=== PATIENT | female | born 1950 | race Caucasian/White ===

== ENCOUNTER → 2017-01-25 | Outpatient (CLI) | payer OTHER | LOC: FIMAGING 10:23 | PROVIDERS: ATTEND Family Medicine | DX: Z12.31 Encounter for screening mammogram for malignant neoplasm of breast (principal) | CPT/HCPCS: G0202 ==

== ENCOUNTER 2017-11-09 05:42 | Inpatient (IN) | payer OTHER ==
[2017-11-09] MEDS ORDERED: cefOXitin SODIUM 2 GM in STERILE WATER INJ 21 ML IV ONE (06:00)
[2017-11-09] MEDS ORDERED: LR 1,000 ML IV ONE (06:07)
[2017-11-09] MEDS ORDERED: ceFAZolin 1 GM/5 ML SYR ONE (06:40)
[2017-11-09] MEDS ORDERED: BUPIVACAINE 0.5% 10 ML SDV ONE (06:41)
[2017-11-09] MEDS ORDERED: HEPARIN 1000 UNIT/1 ML MDV ONE (06:41)
--- NOTE | 2017-11-09 06:52 | PDANEPAE ---
ANE History of Present Illness Laparoscopic rectopexy ANE Past Medical History - Cardiovascular History Hx Hypertension: Yes Hx Arrhythmias: No Hx Chest Pain: No Hx Coronary Artery / Peripheral Vascular Disease: Yes Hx CHF / Valvular Disease: No Hx Palpitations: No Cardiovascular History Comment: known CAD - Pulmonary History Hx COPD: Yes Hx Asthma/Reactive Airway Disease: Yes Hx Recent Upper Respiratory Infection: Yes Hx Oxygen in Use at Home: Yes O2 in Use at Home (L/minute): 2L at noc Hx Sleep Apnea: No Sleep Apnea Screening Result - Last Documented: Positive Pulmonary History Comment: restrictive lung disease. hypoxemia - Neurologic History Hx Cerebrovascular Accident: Yes Hx Seizures: No Hx Dementia: No Neurologic History Comment: stroke 01/04 expressive aphasia, right side weakness - Endocrine History Hx Diabetes: No - Renal History Hx Renal Disorders: No - Liver History Hx Hepatic Disorders: No - Cancer History Hx Cancer: No - Congenital Disorder History Hx Congenital Disorders: No - GI History Hx Gastrointestinal Disorders: Yes Gastrointestinal History Comment: reflux - Other Health History Other Health History: macular degeneration. upper and lower dentures. right sided weakness. bruises easily. pt cannot distinguish between hot and cold with right side - Chronic Pain History Chronic Pain: Yes (head hurts all the time) - Surgical History Prior Surgeries: colonoscopy ANE Review of Systems Review of systems is: negative Review of Systems: - Exercise capacity METS (RN): 2 METS ANE Patient History - Allergies Allergies/Adverse Reactions: No Known Allergies Allergy (Verified 11/07/17 11:05) - Home Medications Home medications: home medication list seen and reviewed Home Medications: Albuterol Sulfate 07/16/11 [Last Taken 10/10/17] Daily Multiple Tablet 07/16/11 [Last Taken 11/07/17] Fish Oil 1,000 mg EC Softgel 07/16/11 [Last Taken 11/07/17] Neurontin 07/16/11 [Last Taken 11/08/17] Occuvite 07/16/11 [Last Taken 11/07/17] Refresh 07/16/11 [Last Taken 11/08/17] Tylenol Tab 325mg 07/16/11 [Last Taken Unknown] Wellbutrin Sr 07/16/11 [Last Taken 11/08/17] Zocor 07/16/11 [Last Taken 11/09/17] ZyRTEC 07/16/11 [Last Taken 11/07/17] Aspirin 81mg (*) 11/07/17 [Last Taken 11/08/17] Cozaar 11/07/17 [Last Taken 11/09/17] Herbals/Supplements -Info Only 11/07/17 [Last Taken 11/07/17] Levothyroxine 11/07/17 [Last Taken 11/09/17] Vitamin D3 (*) 11/07/17 [Last Taken 11/07/17] - NPO status NPO Since - Liquids (Date): 11/09/17 NPO Since - Liquids (Time): 04:30 NPO Since - Solids (Date): 11/08/17 NPO Since - Solids (Time): 19:00 - Anes Hx Anes Hx: no prior problems - Smoking Hx Smoking Status: Former smoker - Family Anes Hx Family Anes Hx: none Family Hx Anesthesia Complications: none ANE Labs/Vital Signs - Labs Result Diagrams: 11/09/17 06:42 - Vital Signs Blood Pressure: 117/65 Heart Rate: 62 Respiratory Rate: 18 O2 Sat (%): 88 Height: 149.86 cm Weight: 104.326 kg ANE Physical Exam - Airway Neck exam: FROM Mallampati Score: Class 3 Mouth exam: dentures - Pulmonary Pulmonary: no respiratory distress - Cardiovascular Cardiovascular: regular rate and rhythym - ASA Status ASA Status: III ANE Anesthesia Plan Anesthesia Plan: general endotracheal anesthesia
[2017-11-09 06:57] LABS: PLATELET COUNT 241 10^3/uL (150-400)
--- NOTE | 2017-11-09 07:03 | PDHPUP ---
History & Physical Update H&P update statement: This history and physical update is based on an assessment of the patient which was completed after admission or registration (within 24 hours), but prior to the surgery/procedure. H&P update: H&P reviewed & patient examined, no change in patient's condition since H&P completed
[2017-11-09] MEDS ORDERED: fentaNYL 250 MCG/5 ML INJ ONE (07:22)
[2017-11-09] MEDS ORDERED: ROCURONIUM 50 MG/5 ML VIAL ONE ×2 (07:22→08:23)
[2017-11-09] MEDS ORDERED: SUGAMMADEX SODIUM 200 MG/2 ML VIAL IVP ONE (07:22)
[2017-11-09] MEDS ORDERED: ONDANSETRON 4 MG/2 ML VIAL ONE (07:22)
[2017-11-09] MEDS ORDERED: LIDOCAINE 2% 100 MG/5 ML SYR ONE (07:22)
[2017-11-09] MEDS ORDERED: DEXAMETHASONE 4 MG/ML VIAL ONE (07:22)
[2017-11-09] MEDS ORDERED: PROPOFOL 200 MG/20 ML VIAL ONE (07:23)
[2017-11-09] MEDS ORDERED: PHENYLEPHRINE HCL 100 MCG/ML SYR ONE (07:45)
[2017-11-09] MEDS ORDERED: HYDROCODONE/APAP 5/325 TAB PO PRN (08:45)
[2017-11-09] MEDS ORDERED: fentaNYL 100 MCG/2 ML INJ IVP PRN (08:45)
[2017-11-09] MEDS ORDERED: ONDANSETRON 4 MG/2 ML VIAL IVP PRN ×2 (08:45→10:16)
[2017-11-09] MEDS ORDERED: PROMETHAZINE HCL 25 MG/ML INJ IVP PRN (08:45)
[2017-11-09] MEDS ORDERED: DEXAMETHASONE 4 MG/ML VIAL IVP PRN (08:45)
[2017-11-09] MEDS ORDERED: MEPERIDINE 25 MG/ML SYR IVP PRN (08:45)
[2017-11-09] MEDS ORDERED: NALOXONE HCL 0.4 MG/ML INJ IVP PRN (08:45)
[2017-11-09] MEDS ORDERED: ALBUTEROL 3 ML DEYVIAL IH PRN (08:45)
[2017-11-09] MEDS ORDERED: HYDROmorphONE/DILAUDID 2 MG/ML INJ IVP PRN (08:45)
[2017-11-09] MEDS ORDERED: LABETALOL HCL 5 MG/ML 20 ML MDV IVP PRN (08:45)
[2017-11-09] MEDS ORDERED: OXYCODONE/APAP 5/325 TAB PO PRN (08:45)
[2017-11-09] MEDS ORDERED: ACETAMINOPHEN 500 MG TAB PO PRN (08:45)
--- NOTE | 2017-11-09 08:47 | POSTANESTH ---
Post Anesthetic Evaluation Cardiovascular Status: Similar to Pre-Op Cond Respiratory Status: Similar to Pre-op Cond. Level of Consciousness/Mental Status: Can Participate in Eval, Moderately Sleepy Pain Control: Adequate, Prn Tx Ordered Nausea/Vomiting Control: Adequate, Prn Tx Ordered Complications Possibly Related to Anesthesia: None Noted
[2017-11-09] MEDS ORDERED: ACETAMINOPHEN 325 MG TAB PO PRN (10:16)
[2017-11-09] MEDS ORDERED: ONDANSETRON DISINTEGRATING 4 MG TAB PO PRN (10:16)
--- NOTE | 2017-11-09 10:16 | POSTOPPROG ---
Post Op Note Date of Operation: 11/09/17 Surgeon: Boyd Galvan Freight Flagman: Luis F Anesthesiologist: Clementine Anesthesia: GET(General Endotracheal) Pre-op Diagnosis: Rectal prolapse Post-op Diagnosis: same Indication: same Procedure: laparoscopic rectopexy Findings: multiple diverticuli Inf/Abcess present in the surg proc area at time of surgery?: No EBL: Minimal
[2017-11-09] MEDS ORDERED: PROMETHAZINE HCL 25 MG/ML INJ ONE (11:03)
[2017-11-09] MEDS: NS 1,000 ML IV SCH ×2 (11:45→21:55)
[2017-11-09] MEDS: HYDROmorphONE/DILAUDID 2 MG/ML INJ IVP PRN ×2 (13:28→18:01)
[2017-11-09] MEDS: OXYCODONE/APAP 5/325 TAB PO PRN ×2 (15:32→20:44)
--- NOTE | 2017-11-09 16:26 | PDMN ---
Medical Necessity Medical necessity: Pt meets INPT criteria per MD and [facility] General Surgery or Procedure ( INPT Only surgery; cpt 90334; lap rectopexy).
[2017-11-10] MEDS: OXYCODONE/APAP 5/325 TAB PO PRN ×5 (00:45→21:20)
[2017-11-10] MEDS: ENOXAPARIN 40 MG/0.4 ML SYR SC SCH (10:25)
[2017-11-10] MEDS: LOSARTAN POTASSIUM 25 MG TAB PO SCH (11:28)
[2017-11-10] MEDS: GABAPENTIN 100 MG CAP PO SCH ×3 (11:28→21:19)
[2017-11-10] MEDS ORDERED: ALBUTEROL 60 PUFFS/8 GM MDI IH PRN (12:21)
[2017-11-10] MEDS ORDERED: CARBOXYMETHYLCELLULOSE 1% 0.4 ML DROPERETTE EACHEYE PRN (12:21)
[2017-11-10] MEDS ORDERED: BISACODYL 10 MG SUPP PR PRN (13:52)
[2017-11-10] MEDS ORDERED: MAGNESIUM HYDROXIDE 30 ML UDCUP PO PRN (13:52)
[2017-11-10] MEDS ORDERED: LACTULOSE 20 GM/30 ML UDCUP PO PRN (13:52)
[2017-11-10] MEDS ORDERED: POLYETHYLENE GLYCOL 3350 17 GM PKT PO PRN (13:52)
--- NOTE | 2017-11-10 13:52 | SOAPPROG ---
SOAP Progress Note Assessment/Plan: Assessment: s/p rectopexy doing well but weak May need rehab DC soon Regular diet Home medications S: Pain controlled. Worked with PT today. Passing flatus O: Lying flat in bed, appears well CTAB RRR BS present, soft and minimally tender Plan: 11/10/17 13:51 Objective: Vital Signs Temp Pulse Resp BP Pulse Ox 37.2 C 90 16 99/69 L 93 11/10/17 11:59 11/10/17 11:59 11/10/17 11:59 11/10/17 11:59 11/10/17 11:59 Laboratory Results 11/09/17 06:42 11/09/17 11/10/17 11/11/17 05:59 05:59 05:59 Intake Total 3984 Output Total 850 550 Balance 3134 -550 ICD10 Worksheet Patient Problems: Problems Problem Status Onset Rectal prolapse Acute - ICD10 Problem Qualifiers (1) Rectal prolapse
--- NOTE | 2017-11-10 14:35 | GOP ---
[f rep st] OPERATIVE REPORT DATE OF OPERATION: 11/09/2017 SURGEON: Boyd Galvan MD VULNERABILITY ASSESSMENT ANALYST: Akilah Spring NP. ANESTHESIA: Dr. Fahad Kerns. PREOPERATIVE DIAGNOSIS: Rectal prolapse. POSTOPERATIVE DIAGNOSIS: Rectal prolapse. PROCEDURE PERFORMED: Rectopexy, laparoscopic. FINDINGS: Patient was found to have full 360 degree rectal prolapse. She had a significant amount o f redundant colon with significant diverticular disease. ESTIMATED BLOOD LOSS: Less than 50 cc. DESCRIPTION OF PROCEDURE: Patient was taken to the operating room where she received satisfactory ge neral endotracheal anesthesia by Dr. Kerns. She was placed in a supine position, prepped and drap ed in the usual sterile fashion. A supraumbilical incision was made. A Veress needle inserted. Pne umoperitoneum was established. Trocar was introduced. Visualization was adequate, although there wa s a significant amount of intraabdominal adhesions. A separate trocar was placed in the left lower q uadrant as well as the right lower quadrant, and adhesions were taken down until the small bowel coul d be retracted back into the upper abdomen. The sigmoid colon was then mobilized by taking down adhe sions to the left lateral wall. The colon was elevated up. The peritoneum on either side of the col on was incised, and dissection extended down to the presacral space as well as exposing the sacral pr ominence. After adequate exposure was achieved, a piece of polypropylene mesh was placed over the sa mayur and secured in place with ProTack tacks. The piece was designed with the veins going on either side of the colon. Multiple 2-0 silk sutures were then placed in the distal sigmoid colon wall and s utured to the presacral fascia and/or to the mesh wings. This was done on either side of the colon, securing the sigmoid colon up to the sacral prominence. Hemostasis was assured. The wound was irrig ated. The peritoneum was closed with a running V-Loc suture. Hemostasis was assured. Trocars were removed under direct vision, and the trocar sites were closed with 0 Vicryl for the fascia, 4-0 Monoc ryl subcuticular stitch for the skin. All layers were infiltrated with Marcaine. She caesar erated the procedure well. COMPLICATIONS: There were no complications. /[id number]/MODL
--- NOTE | 2017-11-10 14:59 | ASMTCMCOM ---
CM Note CM Note Notes: Pt. is a 67-year-old disabled woman admitted for surgery due to a rectal prolapse. Pt. w/ hx. CVA in 2010, forgetful, expressive aphasia, anxiety and depression. At baseline, Pt. lives with her Willem who is her caregiver. Today SWer consulted with beside RN about Pt's situation. Per RN, inclined to take Pt. home and care for her as he as been since Pt's CVA in 2010. However, later in the day jodi Julian expressed that she would like Pt. to go to SNF for one or two weeks since she is currently a two person assist and her father cannot handle the increased needs in dtr's opinion. SWer asked Iesha to discuss this with her father while [facility] made SNF referrals to get the ball rolling. Pt. has [employer] Medicare. Iesha stated she would do that. At daughter's request, SWer made referrals to [facility], [facility], and [facility]. [place] SNFs are preferred. In addition, since Pt. has expressive aphasia, SWer could not sit with Pt. for PASRR interview (hx. of depression and anxiety after stroke). Daughter states that she would characterize Pt's current anxiety and depression as "mild". SWer did not trigger PASRR. PASRR in Allscripts. CM to follow for d/c POC. Date Signed: 11/10/2017 02:58 PM Electronically Signed By:Iwona Santamaria LCSW
[2017-11-10] MEDS ORDERED: NON-FORMULARY NEW DRUG (Simvastatin [Zocor] 5 MG) PO SCH (21:00)
[2017-11-10] MEDS: PRAVASTATIN SODIUM 10 MG TAB PO SCH (21:20)
[2017-11-10] MEDS: DOCUSATE SODIUM 100 MG CAP PO SCH (21:20)
[2017-11-11] MEDS: OXYCODONE/APAP 5/325 TAB PO PRN ×4 (04:36→19:59)
[2017-11-11] MEDS: LEVOTHYROXINE 50 MCG TAB PO SCH (04:38)
[2017-11-11] MEDS: GABAPENTIN 100 MG CAP PO SCH ×3 (09:07→18:17)
[2017-11-11] MEDS: ASPIRIN 81 MG CHEWABLE TAB PO SCH (09:07)
[2017-11-11] MEDS: DOCUSATE SODIUM 100 MG CAP PO SCH ×2 (09:08→19:58)
[2017-11-11] MEDS: LOSARTAN POTASSIUM 25 MG TAB PO SCH (09:08)
[2017-11-11] MEDS: ENOXAPARIN 40 MG/0.4 ML SYR SC SCH (09:08)
--- NOTE | 2017-11-11 12:51 | SOAPPROG ---
SOAP Progress Note Assessment/Plan: Assessment: s/p rectopexy doing well but weak May need rehab - two places contacted and may be able to be placed on Sunday Continue PT - if improves, may not need rehab Regular diet Home medications S: Pain controlled. Feeling much better today O: Sittng in chair, appears well, cheerful CTAB RRR BS present, soft and minimally tender Incisions cdi Plan: 11/10/17 13:51 11/11/17 12:50 Objective: Vital Signs Temp Pulse Resp BP Pulse Ox 36.8 C 82 18 117/69 91 L 11/11/17 07:27 11/11/17 07:27 11/11/17 07:27 11/11/17 09:08 11/11/17 07:27 Laboratory Results 11/09/17 06:42 11/10/17 11/11/17 11/12/17 05:59 05:59 05:59 Intake Total 3984 3000 750 Output Total 850 1850 200 Balance 3134 1150 550 ICD10 Worksheet Patient Problems: Problems Problem Status Onset Rectal prolapse Acute - ICD10 Problem Qualifiers (1) Rectal prolapse
[2017-11-11] MEDS: buPROPion SR 100 MG TAB PO SCH (13:02)
--- NOTE | 2017-11-11 16:23 | ASMTCMCOM ---
CM Note CM Note Notes: Received phonecall from pt's daughter Iesha. Iesha had several questions about dc poc, HHC vs SNF. Alerted referrals were sent out to a few different facilities & [facility] is willing to accept, but CM will need to confirm insurance auth on Sunday. Pt's Willem at pt's bedside requesting to speak with this CM. Met with pt & Willem. Informed Iesha "is not running the show". Discussed dc poc in depth with Willem. Pt & Willem leaning more towards home with HHC, but would like to know if insurance auth was recieved by [facility]. CM will follow up in the morning. Date Signed: 11/11/2017 04:22 PM Electronically Signed By:Yarely Landis RN
[2017-11-11] MEDS: CEPACOL LOZENGE PO PRN (17:51)
[2017-11-11] MEDS: PRAVASTATIN SODIUM 10 MG TAB PO SCH (20:02)
[2017-11-12] MEDS: OXYCODONE/APAP 5/325 TAB PO PRN ×5 (02:01→20:24)
[2017-11-12] MEDS: LEVOTHYROXINE 50 MCG TAB PO SCH (04:51)
[2017-11-12] MEDS: LOSARTAN POTASSIUM 25 MG TAB PO SCH (08:37)
[2017-11-12] MEDS: ENOXAPARIN 40 MG/0.4 ML SYR SC SCH (08:38)
[2017-11-12] MEDS: GABAPENTIN 100 MG CAP PO SCH ×3 (08:38→20:24)
[2017-11-12] MEDS: ASPIRIN 81 MG CHEWABLE TAB PO SCH (08:38)
[2017-11-12] MEDS: DOCUSATE SODIUM 100 MG CAP PO SCH ×2 (08:38→20:24)
--- NOTE | 2017-11-12 10:12 | SOAPPROG ---
SOAP Progress Note Assessment/Plan: Assessment: 67 y/o female s/p rectopexy 11/09 S: Doing well, but had one bout of vomiting this am. Denies pain. Passing gas , but no BM yet. Regular diet. O: Sitting in chair Alert Afebrile CTAB RRR Abdomen: soft, nontender, incisions brent. Plan: Discharge soon, pending placement. Home care v. SNF. Pt prefers home. 11/12/17 10:09 Objective: Vital Signs Temp Pulse Resp BP Pulse Ox 36.8 C 66 14 105/70 94 11/12/17 08:00 11/12/17 08:00 11/12/17 08:00 11/12/17 08:00 11/12/17 08:00 Laboratory Results 11/09/17 06:42 11/11/17 11/12/17 11/13/17 05:59 05:59 05:59 Intake Total 3000 1250 Output Total 1850 800 Balance 1150 450 ICD10 Worksheet Patient Problems: Problems Problem Status Onset Rectal prolapse Acute
[2017-11-12] MEDS: buPROPion SR 100 MG TAB PO SCH (11:44)
[2017-11-12] MEDS: CEPACOL LOZENGE PO PRN (15:49)
--- NOTE | 2017-11-12 17:10 | ASMTCMCOM ---
CM Note CM Note Notes: Spoke with Martínez ([phone]) at [facility]; pt accepted; insurance auth confirmed; transportation to facility confirmed; also confirmed pt's dog Mayra can visit pt at [facility]. Pt & Willem updated; agreeable to dc poc. Updated SCHOOL BASED THERAPIST & RN. Informed pt is medically stable & ready for dc, but has not had a BM; bowel protocol initiated. Martínez updated. CM will follow. Date Signed: 11/12/2017 05:09 PM Electronically Signed By:Yarely Landis RN
[2017-11-12] MEDS: PRAVASTATIN SODIUM 10 MG TAB PO SCH (20:24)
[2017-11-13] MEDS: LEVOTHYROXINE 50 MCG TAB PO SCH (05:02)
[2017-11-13] MEDS: OXYCODONE/APAP 5/325 TAB PO PRN (07:06)
[2017-11-13 07:48] VITALS: PULSE 79; RESP 16; TEMP 98; O2SAT 95
--- NOTE | 2017-11-13 08:36 | PDIAF ---
- Diagnosis Diagnosis: s/p rectopexy Code Status: Full Code - Medication Management Discharge Medications: Medications to Continue on Transfer Acetaminophen [Tylenol 325mg (*)] 325 mg PO DAILY PRN 07/16/11 [Last Taken Unknown] Albuterol [Proventil Inhaler HFA (*)] 2 puffs IH Q4 PRN 07/16/11 [Last Taken Unknown] C/E/Zn/Cu/OM3/DHA/EPA/LUT/ZEAX [Preservision Areds 2 Softgel] 1 each PO DAILY [Last Taken 11/08/17] Carboxymethylcellulose 1% [Refresh Celluvisc (*)] 1 drop EACHEYE DAILY PRN 07/16 [Last Taken Unknown] Cetirizine [ZyrTEC 10 mg (*)] 10 mg PO DAILY PRN 07/16/11 [Last Taken Unknown] Gabapentin [Neurontin 100 MG (*)] 200 mg PO TID@08,,07/16/11 [Last Taken 18:00] Multivitamins [Multivitamin (*)] 1 each PO DAILY@12 07/16/11 [Last Taken ] Simvastatin [Zocor] 5 mg PO HS 07/16/11 [Last Taken 11/08/17] buPROPion SR [Wellbutrin 100mg SR (*)] 100 mg PO DAILY@12 07/16/11 [Last Taken 11/08/17] Aspirin [Aspirin 81mg (*)] 81 mg PO DAILY 11/07/17 [Last Taken 11/07/17] Cholecalciferol Vit D3 [Vitamin D3 (*)] 1,000 units PO DAILY 11/07/17 [Last Taken 11/07/17] Herbals/Supplements -Info Only 1 ea PO DAILY 11/07/17 [Last Taken Unknown] Levothyroxine [Synthroid 50 mcg (*)] 50 mcg PO DAILY06 11/07/17 [Last Taken ] Losartan Potassium [Cozaar 25 mg (*)] 25 mg PO DAILY 11/07/17 [Last Taken ] Docusate Sodium [Colace 100 MG (*)] 300 mg PO BID 11/09/17 [Last Taken 11/08/17 21:00] Gabapentin [Neurontin 100 MG (*)] 200 mg PO TID cap 11/13/17 [Last Taken Unknown] Polyethylene Glycol 3350 [Miralax 17 gm (*)] 17 gm PO DAILY PRN pkt 11/13/17 [ Last Taken Unknown] oxyCODONE/APAP 5/325 [Percocet 5/325 (*)] 1 - 2 tab PO Q4HRS PRN #20 tab [Last Taken Unknown] Discharge Medications: Refer to the Discharge Home Medication list for PRN reason. PICC Care - Routine: N/A - Orders Services needed: Registered Nurse, Physical Therapy, Occupational Therapy Diet Recommendation: no restrictions on diet Diet Texture: Regular Texture Diet Activity/Weight Bearing Restrictions: No lifting over 15 lbs. Additional: Ok to shower. - Follow Up Care Current Providers and Referrals: Iwona Christopher MD [Primary Care Provider] - Boyd Galvan MD [Medical Doctor] - follow up in 2 weeks
[2017-11-13] MEDS: ENOXAPARIN 40 MG/0.4 ML SYR SC SCH (08:41)
[2017-11-13] MEDS: GABAPENTIN 100 MG CAP PO SCH (08:42)
[2017-11-13] MEDS: DOCUSATE SODIUM 100 MG CAP PO SCH (08:42)
[2017-11-13] MEDS: ASPIRIN 81 MG CHEWABLE TAB PO SCH (08:42)
[2017-11-13] MEDS: LOSARTAN POTASSIUM 25 MG TAB PO SCH (08:47)
--- NOTE | 2017-11-13 10:23 | ASMTCMCOM ---
CM Note CM Note Notes: Spoke with RN; confirmed pt had BM. Spoke with PA; dc order received. Updated pt & navarro Bangura; agreeable to dc poc. Alerted Martínez, at [facility]; dc paperwork sent; confirmed received. Martínez to arrange transport. UPdated pt, Willem & RN. No other needs at this time. Date Signed: 11/13/2017 10:21 AM Electronically Signed By:Yarely Landis RN
--- NOTE | 2017-11-13 10:24 | ASDISCHSUM ---
Discharge Information Plan Status:SNF Medically Cleared to Leave:11/13/2017 Discharge Date:11/13/2017 CM D/C Disposition:Retirement Facility ADT D/C Disposition:Retirement Facility Projected Discharge Date:11/13/2017 12:00 PM Transportation at D/C:Wheelchair Van Discharge Delay Reason: Follow-Up Date:11/13/2017 12:00 PM Discharge Slot: Final Diagnosis: Placement Information Referral Type:*Longterm/SNF Referral ID:[id number] Provider Name:[facility] Address 1:[address] Address 2: City:[place] Selection Factors: State:[place] Patient Contact Information Contact Name:ROSEMARY Relationship: Address:[address] Home Phone: City:[place] Alternate Phone: State/Zip Code:[place] [address] Email: Financial Information Financial Class:Medicare Advantage Plans Primary Plan Desc:[employer] CHO[employer] PPO MEDICARE Primary Plan Number:[id number] Secondary Plan Desc: Secondary Plan Number: Assessment Information [facility] CM Progress Note CM Note CM Note Notes: Pt. is a 67-year-old disabled woman admitted for surgery due to a rectal prolapse. Pt. w/ hx. CVA in 2010, forgetful, expressive aphasia, anxiety and depression. At baseline, Pt. lives with her Willem who is her caregiver. Today SWer consulted with beside RN about Pt's situation. Per RN, inclined to take Pt. home and care for her as he as been since Pt's CVA in 2010. However, later in the day jodi Julian expressed that she would like Pt. to go to SNF for one or two weeks since she is currently a two person assist and her father cannot handle the increased needs in dtr's opinion. SWer asked Iesha to discuss this with her father while [facility] made SNF referrals to get the ball rolling. Pt. has [employer] Medicare. Iesha stated she would do that. At daughter's request, SWer made referrals to [facility] [place], [facility], and [facility]. [place] SNFs are preferred. In addition, since Pt. has expressive aphasia, SWer could not sit with Pt. for PASRR interview (hx. of depression and anxiety after stroke). Daughter states that she would characterize Pt's current anxiety and depression as "mild". SWer did not trigger PASRR. PASRR in Allscripts. CM to follow for d/c POC. Date Signed: 11/10/2017 02:58 PM Electronically Signed By:Iwona Santamaria LCSW [facility] CM Progress Note CM Note CM Note Notes: Received phonecall from pt's daughter Iesha. Iesha had several questions about dc poc, HHC vs SNF. Alerted referrals were sent out to a few different facilities & [facility] is willing to accept, but CM will need to confirm insurance auth on Sunday. Pt's Willem at pt's bedside requesting to speak with this CM. Met with pt & Willem. Informed Iesha "is not running the show". Discussed dc poc in depth with Willem. Pt & Willem leaning more towards home with HHC, but would like to know if insurance auth was recieved by [facility]. CM will follow up in the morning. Date Signed: 11/11/2017 04:22 PM Electronically Signed By:Yarely Landis RN [facility] CM Progress Note CM Note CM Note Notes: Spoke with Martínez ([phone]) at [facility]; pt accepted; insurance auth confirmed; transportation to facility confirmed; also confirmed pt's dog Mayra can visit pt at [facility]. Pt & Willem updated; agreeable to dc poc. Updated FARO DEALER & RN. Informed pt is medically stable & ready for dc, but has not had a BM; bowel protocol initiated. Martínez updated. CM will follow. Date Signed: 11/12/2017 05:09 PM Electronically Signed By:Yarely Landis RN [facility] CM Progress Note CM Note CM Note Notes: Spoke with RN; confirmed pt had BM. Spoke with PA; dc order received. Updated pt & Willem; agreeable to dc poc. Alerted Martínez, at [facility]; dc paperwork sent; confirmed received. Martínez to arrange transport. UPdated Willem marx & RN. No other needs at this time. Date Signed: 11/13/2017 10:21 AM Electronically Signed By:Yarely Landis RN Intervention Information Intervention Type:*IM-Signed Date of Service:11/13/2017 10:08 AM Patient Type:Inpatient Staff Member:Lexi Godwin Hours: Discipline: Severity: Comment:
[2017-11-13 12:15] VITALS: BP 115/78
== END 2017-11-13 12:01 | DRG 330 ==
LOC: F3N 05:42 → EDSTATUS 07:15 → F3E 11:33
PROVIDERS: ADMIT Surgery; ATTEND Surgery
PROC: 0DQP4ZZ Repair Rectum, Percutaneous Endoscopic Approach (ICD-10-PCS; principal; 2017-11-09 07:15)
DX: K62.3 Rectal prolapse (principal); K57.32 Diverticulitis of large intestine without perforation or abscess without bleeding; I69.920 Aphasia following unspecified cerebrovascular disease; E03.9 Hypothyroidism, unspecified; J44.9 Chronic obstructive pulmonary disease, unspecified; I25.10 Atherosclerotic heart disease of native coronary artery without angina pectoris; I10 Essential (primary) hypertension; K21.9 Gastro-esophageal reflux disease without esophagitis; E66.9 Obesity, unspecified; Z68.35 Body mass index [BMI] 35.0-35.9, adult; Z86.010 Personal history of colon polyps
CPT/HCPCS: 97110-GP; 97116-GP; 97162-GP; 97166-GO; 97530-GP; 97535-GO; C1781; G8978-GP-CK; G8979-GP-CI; J0694; J1100; J1170; J1650; J2001; J2370; J2405; J2550; J2704; J3010

== ENCOUNTER 2017-12-14 08:42 | Inpatient (IN) | payer OTHER ==
--- NOTE | 2017-12-14 09:08 | EDPHY ---
H & P Stated Complaint: constipation/rectal and l abd pain had surg dr hartmann for rectal prolapse 3 Time Seen by Provider: 12/14/17 09:07 HPI/ROS: HPI: This is a 59-year-old female who presents with Chief Complaint: constipation/rectal and l abd pain had surg dr hartmann for rectal prolapse 3 Location: Left lower quadrant/right upper quadrant/right lower ribs Quality: Constant pain Duration: Since Sunday Signs and Symptoms: no fever, no nausea, no vomiting, no hematemesis, no blood in stool, no abdominal bloating, no diarrhea, no back pain, no urinary symptoms , no abdominal bleeding/discharge, no indigestion, no chest pain, no shortness of breath Timing: Worsening Severity: Moderate Context: Patient presents with constipation and rectal and left abdominal pain. She reports that she status post surgery on 11/12/[address] Boyd Hartmann. Chart review shows that she had a laparoscopic rectopexy for 360 degree rectal prolapse secondary to diverticular disease. Patient reports that after surgery she went to a nursing home facility for 8 days and then return home to her . After returning home, she started to experience bilateral leg cramps. She saw her PCP and was diagnosed with muscle cramps/restless leg syndrome and prescribed baclofen. reports that the baclofen makes her extremely tired and she only takes it at night. Patient reports that last Sunday evening Sunday she went to the bathroom in the middle the night and accidentally fell; using both her forearms to brace herself on the top of and hitting the right side of her chest. She was experiencing left lower quadrant pain and right lower rib and right upper quadrant pain for the last few days. Saw Dr. Hartmann in the office on Sunday. Started on MiraLax and stool softeners. reports that yesterday she had 2 small pencil like stools that were very hard. Pain continues in the left lower quadrant and right upper quadrant/right lower ribs. She takes gabapentin for chronic pain 3 times a day and she has no relief. History of cholecystectomy. Denies any blood in stool/ hematemesis/fever/burning with urination/nausea/vomiting. reports that this morning around 6:00 a.m. She was complaining of severe, constant pain. Modifying Factors: See above Comment: ROS: see HPI Constitutional: No fever, no chills, no weight loss Eyes: No blurred vision Respiratory: No shortness of breath, no cough Cardiovascular: No chest pain, no palpitations Gastrointestinal: No nausea, no vomiting, no diarrhea, no hematemesis, no blood in stool Genitourinary: No dysuria, no blood in urine Extremities: No myalgias, no edema Neurologic: No weakness, no numbness Skin: No rashes, no petechiae Hematologic: No bruising, no bleeding MEDICAL/SURGICAL/SOCIAL HISTORY: Medical history: Hypothyroidism/htn/copd/rectal prolapse surgery/cva/wears oxygen at night/depression/COPD/hyperlipidemia/obesity/osteoporosis Surgical history: Cholecystectomy Social history: Family history noncontributory. CONSTITUTIONAL: Obese, nontoxic-appearing, elderly white female, awake and alert, no obvious distress HEENT: Atraumatic and normocephalic, PERRL, EOMI. Nares patent; no rhinorrhea; no nasal mucosal edema. Tympanic membranes clear. Oropharynx clear, no exudate and moist pink mucosa. Airway patent. No lymphadenopathy. No meningismus. Cardiovascular: Normal S1/S2, regular rate, regular rhythm, without murmur rub or gallop. PULMONARY/CHEST: Symmetrical and moderate right anterior lower rib tenderness; no ecchymosis seen; no crepitus. Clear to auscultation bilaterally. Good air movement. No accessory muscle usage. ABDOMEN: Soft, obesely rounded, unable to hear bowel sounds x4 quadrants; right upper quadrant moderate and left lower quadrant moderate tenderness, no rebound, no guarding, no peritoneal signs, no masses or organomegaly. No CVAT. Remote Woo incision appreciated. EXTREMITIES: 2/2 pulses, strength 5/5, no deformities, no clubbing, no cyanosis or edema. NEUROLOGICAL: no focal neuro deficits. GCS 15. SKIN: Warm and dry, no erythema. no rash. Good capillary refill. Source: Patient Exam Limitations: No limitations - Personal History Current Tetanus Diphtheria and Acellular Pertussis (TDAP): Yes - Medical/Surgical History Hx Asthma: No Hx Chronic Respiratory Disease: Yes Hx Diabetes: No Hx Cardiac Disease: No Hx Renal Disease: No Hx Cirrhosis: No Hx Alcoholism: No Hx HIV/AIDS: No Hx Splenectomy or Spleen Trauma: No Other PMH: htn/copd/rectal prolapse surgery/cva - Social History Smoking Status: Former smoker Constitutional: Initial Vital Signs Temperature (C) 37 C 12/14/17 08:47 Heart Rate 84 12/14/17 08:47 Respiratory Rate 18 12/14/17 08:47 Blood Pressure 136/82 H 12/14/17 08:47 O2 Sat (%) 90 L 12/14/17 08:47 O2 Delivery Mode Nasal Cannula O2 (L/minute) 3 Allergies/Adverse Reactions: No Known Allergies Allergy (Verified 12/14/17 08:44) Home Medications: Medication Instructions Recorded C/E/Zn/Cu/OM3/DHA/EPA/LUT/ZEAX 1 each PO DAILY 07/16/11 [Preservision Areds 2 Softgel] Carboxymethylcellulose 1% [Refresh 1 drop EACHEYE DAILY PRN 07/16/11 Celluvisc (*)] Cetirizine [ZyrTEC 10 mg (*)] 10 mg PO DAILY 07/16/11 Gabapentin [Neurontin 100 MG (*)] 200 mg PO TID@,,07/16/11 Multivitamins [Multivitamin (*)] 1 each PO DAILY@12 07/16/11 Simvastatin [Zocor] 5 mg PO HS 07/16/11 buPROPion SR [Wellbutrin 100mg SR 100 mg PO DAILY@12 07/16/11 (*)] Aspirin [Aspirin 81mg (*)] 81 mg PO DAILY 11/07/17 Cholecalciferol Vit D3 [Vitamin D3 1,000 units PO DAILY 11/07/17 (*)] Herbals/Supplements -Info Only 1 ea PO DAILY 11/07/17 Losartan Potassium [Cozaar 25 mg 25 mg PO DAILY 11/07/17 (*)] Docusate Sodium [Colace 100 MG (*)] 200 mg PO BID 11/09/17 Acetaminophen [Tylenol ES 500 mg 500 mg PO Q6 PRN 12/14/17 (*)] Baclofen [Baclofen 10 mg (*)] 5 mg PO HS 12/14/17 Levothyroxine [Synthroid 75 mcg 75 mcg PO DAILY06 12/14/17 (*)] Magnesium Oxide [Magnesium Oxide 400 mg PO DAILY 12/14/17 400 mg (*)] Polyethylene Glycol 3350 [Miralax 17 gm PO DAILY 04/20/18 17 gm (*)] Medical Decision Making - Diagnostics Imaging Results: Imaging Impressions Abdomen CT 12/14/17 09:24 Impression: 1. There is no evidence of a rib fracture, pleural hematoma, or pneumothorax. 2. Chronic stable scarring of the inferomedial right middle lobe and the inferior lingula. 3. Mild cardiomegaly with extensive coronary artery atherosclerotic calcifications. Contrast-Enhanced CT Scan of the Abdomen and Pelvis: Liver: Normal in size and homogeneous in attenuation. There is chronic mild elevation of the right hemidiaphragm. Bile Ducts: Normal. Gallbladder: Absent, consistent with the provided history of a prior cholecystectomy. Pancreas: Normal. Spleen: Normal. Adrenal Glands: The right adrenal gland is normal. There is chronic hyperplasia of the medial and lateral limbs of the left adrenal gland, dating back to the 2007 exam. Kidneys/Ureters/Urinary Bladder: The kidneys are normal in size, shape, and position, with some mild renal cortical scarring along the posterior midpole the right kidney. There is a [id number] degree of left hydroureteronephrosis with the ureter dilated adjacent to a retroperitoneal cystic structure, which will be discussed further below. GI Tract: There is a small central sliding hiatal hernia present. The stomach is otherwise unremarkable. The small bowel appears normal. There are some scattered colonic diverticula present, with no evidence of diverticulitis. The descending colon and the sigmoid colon are medially displaced by a large retroperitoneal cystic structure, to be discussed further below. Retroperitoneum: There is a large partially-septated cystic fluid collection with a Hounsfield unit measurement of 4 having an oblique cephalocaudal diameter measurement of 21.4 cm, and a maximal transverse diameter measurement of 14.1 x 15.3 cm. This extends to the caudally into the anterior aspect of the pelvis, just above the level of the symphysis pubis, and leftward along the retroperitoneum anterior to the iliac crests and psoas musculature, to the level of the lower pole of the left kidney. This mass partially compresses the caudal lumbar aspect of the left ureter, anteriorly displaces the descending colon, and medially displaces (and significantly narrows) the sigmoid colon, and partially compresses a portion of the urinary bladder. Given the patient's history of recent rectal prolapse surgery, this most likely represents a large retroperitoneal lymphocele versus liquefied seroma. The lack of intrinsic air would militate against an abscess. Other less likely differential considerations might also include a retroperitoneal cystic lymphangioma or mucinous cystadenoma. There does not appear to be any significant intrinsic mural nodular enhancement. There is no retroperitoneal adenopathy observed. Mesentery/Omentum/Peritoneum: There is no ascites, free air, or localized fluid collection.] There is no mesenteric adenopathy, mesenteric edema, omental caking, or peritoneal nodule identified. Vessels: The abdominal aorta is normal in size, and tapers normally. The IVC is normal in caliber. The splenic vein, superior mesenteric vein, and the main portal vein are patent. Reproductive Organs: The uterus is absent. The ovaries are not delineated, and may also be surgically absent. Abdominal Wall: There is a periumbilical fat-containing hernia, with the hernia neck measuring 16 mm in cephalocaudal diameter and 15 mm in transverse diameter. Osseous Structures: There is accentuation of the normal lumbar lordosis in this patient with morbid obesity. There is trace retrolisthesis of L5 above S1 with advanced degenerative disk space narrowing and a vacuum disk phenomenon. Impression: 1. There is a 21.4 x 14.1 x 15.3 cm left sided simple-appearing retroperitoneal cystic fluid collection, extending from the caudal pelvis up to the lower pole level of the left kidney, displacing bowel and resulting in [id number] left hydroureteronephrosis. Given the patient's history of recent rectal prolapse surgery, this probably represents a large lymphocele versus postoperative seroma. 2. Small hiatal hernia. 3. Absent gallbladder (history of cholecystectomy) and absent uterus. 3. Chronic stable left adrenal gland hyperplasia. 5. Periumbilical fat-containing hernia. 6. Colonic diverticulosis. Findings were discussed with Shannon Canada PA-C at 12:09, on 12/14/2017. Chest CT 12/14/17 09:24 Impression: 1. There is no evidence of a rib fracture, pleural hematoma, or pneumothorax. 2. Chronic stable scarring of the inferomedial right middle lobe and the inferior lingula. 3. Mild cardiomegaly with extensive coronary artery atherosclerotic calcifications. Contrast-Enhanced CT Scan of the Abdomen and Pelvis: Liver: Normal in size and homogeneous in attenuation. There is chronic mild elevation of the right hemidiaphragm. Bile Ducts: Normal. Gallbladder: Absent, consistent with the provided history of a prior cholecystectomy. Pancreas: Normal. Spleen: Normal. Adrenal Glands: The right adrenal gland is normal. There is chronic hyperplasia of the medial and lateral limbs of the left adrenal gland, dating back to the 2007 exam. Kidneys/Ureters/Urinary Bladder: The kidneys are normal in size, shape, and position, with some mild renal cortical scarring along the posterior midpole the right kidney. There is a [id number] degree of left hydroureteronephrosis with the ureter dilated adjacent to a retroperitoneal cystic structure, which will be discussed further below. GI Tract: There is a small central sliding hiatal hernia present. The stomach is otherwise unremarkable. The small bowel appears normal. There are some scattered colonic diverticula present, with no evidence of diverticulitis. The descending colon and the sigmoid colon are medially displaced by a large retroperitoneal cystic structure, to be discussed further below. Retroperitoneum: There is a large partially-septated cystic fluid collection with a Hounsfield unit measurement of 4 having an oblique cephalocaudal diameter measurement of 21.4 cm, and a maximal transverse diameter measurement of 14.1 x 15.3 cm. This extends to the caudally into the anterior aspect of the pelvis, just above the level of the symphysis pubis, and leftward along the retroperitoneum anterior to the iliac crests and psoas musculature, to the level of the lower pole of the left kidney. This mass partially compresses the caudal lumbar aspect of the left ureter, anteriorly displaces the descending colon, and medially displaces (and significantly narrows) the sigmoid colon, and partially compresses a portion of the urinary bladder. Given the patient's history of recent rectal prolapse surgery, this most likely represents a large retroperitoneal lymphocele versus liquefied seroma. The lack of intrinsic air would militate against an abscess. Other less likely differential considerations might also include a retroperitoneal cystic lymphangioma or mucinous cystadenoma. There does not appear to be any significant intrinsic mural nodular enhancement. There is no retroperitoneal adenopathy observed. Mesentery/Omentum/Peritoneum: There is no ascites, free air, or localized fluid collection.] There is no mesenteric adenopathy, mesenteric edema, omental caking, or peritoneal nodule identified. Vessels: The abdominal aorta is normal in size, and tapers normally. The IVC is normal in caliber. The splenic vein, superior mesenteric vein, and the main portal vein are patent. Reproductive Organs: The uterus is absent. The ovaries are not delineated, and may also be surgically absent. Abdominal Wall: There is a periumbilical fat-containing hernia, with the hernia neck measuring 16 mm in cephalocaudal diameter and 15 mm in transverse diameter. Osseous Structures: There is accentuation of the normal lumbar lordosis in this patient with morbid obesity. There is trace retrolisthesis of L5 above S1 with advanced degenerative disk space narrowing and a vacuum disk phenomenon. Impression: 1. There is a 21.4 x 14.1 x 15.3 cm left sided simple-appearing retroperitoneal cystic fluid collection, extending from the caudal pelvis up to the lower pole level of the left kidney, displacing bowel and resulting in [id number] left hydroureteronephrosis. Given the patient's history of recent rectal prolapse surgery, this probably represents a large lymphocele versus postoperative seroma. 2. Small hiatal hernia. 3. Absent gallbladder (history of cholecystectomy) and absent uterus. 3. Chronic stable left adrenal gland hyperplasia. 5. Periumbilical fat-containing hernia. 6. Colonic diverticulosis. Findings were discussed with Shannon Canada PA-C at 12:09, on 12/14/2017. ED Course/Re-evaluation: Due to patient's body habitus; CT abdomen and pelvis scan and CT chest ordered to evaluate for diverticular disease/obstruction/rib fractures Labs, urinalysis, 500 cc normal saline, IV morphine ordered 1026: Labs reviewed; WBC 10 K; H&H 11.1/34.6, creatinine 1.2 chart review shows last value in 2013 was 0.9. No signs of lactic acidosis. 1214: Called by radiologist, Dr. Zarate who reports that there is a large retroperitoneal cystic fluid collection; no uterus appreciated; resultant left hydronephrosis; questions postop seroma. ? etiology. CT chest shows no signs of rib fracture; pneumothorax; pneumonia. NPO status. Patient currently stable. Afebrile and no leukocytosis to indicate signs of infection. 1215: ED decision to consult for admission. Spoke with Dr. Hartmann who kindly agrees to admit patient for further care. This patient was seen under the supervision of my secondary supervising physician. I evaluated care for this patient independently. Discussed this patient with Dr. Vernon who did not see the patient. Differential Diagnosis: Abdominal pain including but not limited to appendicitis, obstruction, diverticulitis, gastritis and urinary tract infection. - Data Points Laboratory Results: Laboratory Results 12/14/17 09:45 12/14/17 09:45 12/14/17 12/14/17 12/14/17 09:45 09:45 09:45 WBC 10.20 10^3/uL H 10^3/uL (3.80-9.50) RBC 3.64 10^6/uL L 10^6/uL (4.18-5.33) Hgb 11.1 g/dL L g/dL (12.6-16.3) Hct 34.6 % L % (38.0-47.0) MCV 95.1 fL fL (81.5-99.8) MCH 30.5 pg pg (27.9-34.1) MCHC 32.1 g/dL L g/dL (32.4-36.7) RDW 13.5 % % (11.5-15.2) Plt Count 336 10^3/uL 10^3/uL (150-400) MPV 9.2 fL fL (8.7-11.7) Neut % (Auto) 79.9 % H % (39.3-74.2) Lymph % (Auto) 10.4 % L % (15.0-45.0) Benson % (Auto) 7.1 % % (4.5-13.0) Eos % (Auto) 1.6 % % (0.6-7.6) Baso % (Auto) 0.5 % % (0.3-1.7) Nucleat RBC Rel Count 0.0 % % (0.0-0.2) Absolute Neuts (auto) 8.16 10^3/uL H 10^3/uL (1.70-6.50) Absolute Lymphs (auto) 1.06 10^3/uL 10^3/uL (1.00-3.00) Absolute Monos (auto) 0.72 10^3/uL 10^3/uL (0.30-0.80) Absolute Eos (auto) 0.16 10^3/uL 10^3/uL (0.03-0.40) Absolute Basos (auto) 0.05 10^3/uL 10^3/uL (0.02-0.10) Absolute Nucleated RBC 0.00 10^3/uL 10^3/uL (0-0.01) Immature Gran % 0.5 % % (0.0-1.1) Immature Gran # 0.05 10^3/uL 10^3/uL (0.00-0.10) PT 13.6 SEC SEC (12.0-15.0) INR 1.02 (0.83-1.16) APTT 34.5 SEC SEC (23.0-38.0) VBG Lactic Acid Sodium 140 mEq/L mEq/L (135-145) Potassium 4.2 mEq/L mEq/L (3.5-5.2) Chloride 102 mEq/L mEq/L (97-110) Carbon Dioxide 29 mEq/l mEq/l (22-31) Anion Gap 9 mEq/L mEq/L (8-16) BUN 15 mg/dL mg/dL (7-23) Creatinine 1.2 mg/dL H mg/dL (0.6-1.0) Estimated GFR 45 Glucose 90 mg/dL mg/dL (70-100) Calcium 9.1 mg/dL mg/dL (8.5-10.4) Total Bilirubin 0.4 mg/dL mg/dL (0.1-1.4) Conjugated Bilirubin 0.3 mg/dL mg/dL (0.0-0.5) Unconjugated Bilirubin 0.1 mg/dL mg/dL (0.0-1.1) AST 24 IU/L IU/L (14-46) ALT 35 IU/L IU/L (9-52) Alkaline Phosphatase 155 IU/L H IU/L (38-126) Total Protein 7.0 g/dL g/dL (6.3-8.2) Albumin 3.7 g/dL g/dL (3.5-5.0) Lipase 49 IU/L IU/L (23-300) 12/14/17 09:45 WBC RBC Hgb Hct MCV MCH MCHC RDW Plt Count MPV Neut % (Auto) Lymph % (Auto) Benson % (Auto) Eos % (Auto) Baso % (Auto) Nucleat RBC Rel Count Absolute Neuts (auto) Absolute Lymphs (auto) Absolute Monos (auto) Absolute Eos (auto) Absolute Basos (auto) Absolute Nucleated RBC Immature Gran % Immature Gran # PT INR APTT VBG Lactic Acid 0.8 mmol/L mmol/L (0.7-2.1) Sodium Potassium Chloride Carbon Dioxide Anion Gap BUN Creatinine Estimated GFR Glucose Calcium Total Bilirubin Conjugated Bilirubin Unconjugated Bilirubin AST ALT Alkaline Phosphatase Total Protein Albumin Lipase Medications Given: Discontinued Medications Sodium Chloride (Ns) 500 mls @ 1,000 mls/hr IV EDNOW ONE PRN Reason: Protocol Stop: 12/14/17 10:00 Last Admin: 12/14/17 10:05 Dose: 500 mls Morphine Sulfate (Morphine) 6 mg IVP EDNOW ONE Stop: 12/14/17 09:25 Last Admin: 12/14/17 10:14 Dose: 6 mg Morphine Sulfate (Morphine) 4 mg IVP EDNOW ONE Stop: 12/14/17 13:32 Last Admin: 12/14/17 13:34 Dose: 4 mg Ondansetron HCl (Zofran) 4 mg IVP EDNOW ONE Stop: 12/14/17 09:25 Last Admin: 12/14/17 10:05 Dose: 4 mg Departure - Departure Disposition: [facility] In[facility] Acute Clinical Impression: Intra-abdominal fluid collection Condition: Fair
[2017-12-14] MEDS ORDERED: ONDANSETRON 4 MG/2 ML VIAL IVP ONE (09:24)
[2017-12-14] MEDS ORDERED: NS 500 ML IV ONE (09:31)
[2017-12-14] MEDS ORDERED: IOPAMIDOL (ISOVUE-300) 100 ML BTL ONE (09:41)
[2017-12-14 09:57] LABS: PLATELET COUNT 336 10^3/uL (150-400)
[2017-12-14 13:26] LABS: INR 1.02 (0.83-1.16); PROTIME(PATIENT) 13.6 SEC (12.0-15.0)
[2017-12-14] MEDS ORDERED: MEPERIDINE 25 MG/ML SYR IVP PRN (15:22)
[2017-12-14] MEDS ORDERED: MIDAZOLAM 2 MG/2 ML VIAL IVP PRN (15:22)
[2017-12-14] MEDS ORDERED: PROTAMINE SULFATE 50 MG/5 ML VIAL IVP PRN (15:22)
[2017-12-14] MEDS ORDERED: NALOXONE HCL 0.4 MG/ML INJ IVP PRN (15:22)
[2017-12-14] MEDS ORDERED: HEPARIN 10,000 UNIT/10 ML MDV (1,000 UNIT/ML) IVP PRN (15:22)
[2017-12-14] MEDS ORDERED: GLUCAGON HCL 1 MG VIAL IVP PRN (15:22)
[2017-12-14] MEDS ORDERED: FLUMAZENIL 0.5 MG/5 ML MDV IVP PRN (15:22)
[2017-12-14] MEDS ORDERED: ALTEPLASE 2 MG VIAL IVP PRN (15:22)
[2017-12-14] MEDS ORDERED: fentaNYL 100 MCG/2 ML INJ IVP PRN (15:22)
[2017-12-14] MEDS ORDERED: NS 1,000 ML IV SCH (15:30)
--- NOTE | 2017-12-14 15:39 | SOAPPROG ---
SOAP Progress Note Assessment/Plan: Assessment: PT WITH LLQ PAIN ONE MONTH AFTER RECTOPEXY DOWN WITH PELVIC FLUID COLLECTION ? URINE COLLECTION VS SEROMA AFEBRILE, MILDLY TENDER/ WBC 10K, CREAT 1.2 Plan:CYSTOGRAM AND DRAINAGE TODAY 12/14/17 15:37 Objective: Vital Signs Temp Pulse Resp BP Pulse Ox 36.9 C 78 18 118/79 93 12/14/17 14:20 12/14/17 14:20 12/14/17 14:20 12/14/17 14:20 12/14/17 14:20 PT 13.6 SEC (12.0-15.0) 12/14/17 09:45 INR 1.02 (0.83-1.16) 12/14/17 09:45 ICD10 Worksheet Patient Problems: Problems Problem Status Onset Intra-abdominal fluid collection Acute Rectal prolapse Acute
--- NOTE | 2017-12-14 16:47 | PDPROPOC ---
Sedation Plan of Care Sedation Plan of Care: vital signs stable, mental status noted, patient educated of risks, benefits, alternatives, patient can tolerate sedation ASA Classification: ASA 2 Planned drugs: fentanyl, midazolam Mallampati Score: Class 3 Mallampati Reference Image: Patient passed 3-3-2 rule?: Yes
[2017-12-14] MEDS ORDERED: ONDANSETRON 4 MG/2 ML VIAL IVP PRN (17:00)
[2017-12-14] MEDS ORDERED: HYDROmorphone HCL/NS 0.5 MG/ML SYR IVP PRN (17:00)
[2017-12-14] MEDS ORDERED: D5W 1/2 NS 1,000 ML IV SCH (17:15)
--- NOTE | 2017-12-14 17:27 | GHP ---
[f rep st] HISTORY AND PHYSICAL DATE OF ADMISSION: 12/14/2017 CHIEF COMPLAINT: Lower abdominal pain and right-sided rib pain. HISTORY OF PRESENT ILLNESS: The patient is a 67-year-old female who underwent laparoscopic rectopexy on November 09. Her postoperative course was unremarkable. She had been tolerating a normal diet and having normal bowel movements until she presented to our office on Sunday complaining of lower abdominal pain. She had been having some bowel movements, but they were hard and difficult to pass. In addition ,she complained of trouble urinating and felt that she was unable to empty her bladder fully. She also reported that she had a fall 5 days prior to her clinic visit in which she sustained right-sided rib, upper right quadrant pain, superficial right breast pain, and left hip pain. At that office visit, we felt that her lower abdominal pain was consistent with constipation and recommended MiraLAX. Per her today in the emergency room, the patient had been receiving MiraLAX twice a day, as well as Colace twice per day with a positive bowel movement last night. However, this morning, she complained of worsening pain in her lower abdomen, at which point she came to the emergency room. She is also still reporting the urge to urinate but unable to do so. She denies fever, nausea, vomiting, and diarrhea. PAST MEDICAL HISTORY: Includes acquired hypothyroidism, anxiety, chronic obstructive pulmonary disease, coronary artery disease, status post CVA, depression, essential hypertension, GERD, hyperlipidemia, hypoxemia, osteoporosis, and restrictive lung disease. PAST SURGICAL HISTORY: Includes hemorrhoid banding, hysterectomy, and her most recent surgery, rectal prolapse repair approximately 5 weeks ago. MEDICATIONS: Aspirin 81 mg, calcium 500 mg, Cozaar 25 mg, docusate sodium 100 mg oral capsule, fish oil 1000 mg, gabapentin 100 mg 3 times daily, levothyroxine 75 mcg, multivitamin, MiraLAX, PreserVision AREDS 2, Proventil inhaler, simvastatin 5 mg, vitamin D3 at 1000 units, Wellbutrin 100 mg, and Zyrtec 100 mg. ALLERGIES: No known drug allergies. SOCIAL HISTORY: She is a former smoker, 20 year-pack history. REVIEW OF SYSTEMS: 10-point review of systems was reviewed and is negative except for what is in the HPI. DIAGNOSTICS: Chest CT revealed no evidence of a rib fracture, pleural hematoma , or pneumothorax. Abdominal CT revealed a 21.4 x 14.1 x 15.3 cm left-sided, simple-appearing retroperitoneal cystic fluid collection, possibly representing a lymphocele or postoperative seroma. PHYSICAL EXAM: HEENT: normocephalic, eyes anicteric, PERRLA, CARDIAC: Regular rate and rhythm, no murmurs CHEST: Clear to auscultation bilaterally, ABDOMEN: rotund, diffusely tender to palpation, normoactive bowel sounds MUSCULOSKELETAL : moves all extremities equally SKIN: warm and dry PSYCH: mentally delayed with aphasia IMPRESSION AND PLAN: I personally reviewed the CT images with Dr. Galvan. There is some concern that the fluid collection in her pelvis could be a ureterocele. Plan to admit the patient for observation as well as a CT-guided needle drainage of the cystic fluid collection in her pelvis. Cystogram to evaluate ureters. /[id number]/MODL MTDD
[2017-12-14] MEDS ORDERED: ACETAMINOPHEN 500 MG TAB PO PRN (18:13)
[2017-12-14] MEDS ORDERED: CARBOXYMETHYLCELLULOSE 1% 0.4 ML DROPERETTE EACHEYE PRN (18:13)
--- NOTE | 2017-12-14 19:18 | PDRADPN ---
Radiology Procedure Note Date of Procedure: 12/14/17 Radiologist: Eder Gaytan Vegetable Worker(s): Koby CHRISTINE Anesthesia: Other (Specify) (Fentanyl only) Pre-op Diagnosis: loculated pelvic fluid collection. abscess, urinoma, seroma Post-op Diagnosis: loculated pelvic fluid collection. abscess, urinoma, seroma Indication: loculated pelvic fluid collection. abscess, urinoma, seroma Procedure: CT guided percutaneous 10 Fr pigtail drain Finding(s): Complete drainage of collection Inf/Abcess present in the surg proc area at time of surgery?: No Depth: Organ Space (peritoneal) Total fluids administered: 1300 ml. 60 ml submitted to lab for cx, gram stain, and CREAT Complications: No immediate complication. Drains: Other (10 Fr Percutaneous pigtail drain) Specimen(s): 1300 ml. 60 ml sent to lab
[2017-12-14] MEDS: DOCUSATE SODIUM 100 MG CAP PO SCH (20:26)
[2017-12-14] MEDS: OXYCODONE/APAP 5/325 TAB PO PRN (20:26)
[2017-12-14] MEDS: BACLOFEN 10 MG TAB PO SCH (20:27)
[2017-12-14] MEDS ORDERED: NON-FORMULARY NEW DRUG (Simvastatin [Zocor] 5 MG) PO SCH (21:00)
[2017-12-14] MEDS: ACETAMINOPHEN 325 MG TAB PO PRN (22:53)
[2017-12-15] MEDS: OXYCODONE/APAP 5/325 TAB PO PRN ×2 (03:06→19:27)
[2017-12-15] MEDS: LEVOTHYROXINE 75 MCG TAB PO SCH (06:46)
[2017-12-15] MEDS: CHOLECALCIFEROL VIT D3 1,000 UNITS TAB PO SCH (07:41)
[2017-12-15] MEDS: GABAPENTIN 100 MG CAP PO SCH ×3 (07:41→18:10)
[2017-12-15] MEDS: LOSARTAN POTASSIUM 25 MG TAB PO SCH (07:42)
[2017-12-15] MEDS: DOCUSATE SODIUM 100 MG CAP PO SCH ×2 (07:42→21:09)
[2017-12-15] MEDS: CETIRIZINE 10 MG TAB PO SCH (07:42)
[2017-12-15] MEDS: ASPIRIN 81 MG CHEWABLE TAB PO SCH (07:42)
[2017-12-15] MEDS: POLYETHYLENE GLYCOL 3350 17 GM PKT PO SCH (07:53)
[2017-12-15] MEDS ORDERED: MAGNESIUM HYDROXIDE 30 ML UDCUP PO PRN (08:53)
[2017-12-15] MEDS: SENNOSIDES/DOCUSATE SODIUM TAB PO SCH ×2 (09:21→21:09)
--- NOTE | 2017-12-15 11:09 | SOAPPROG ---
SOAP Progress Note Assessment/Plan: Assessment: 67 y/o female s/p laparoscopic rectopexy 5 weeks ago presented to ED yesterday with increasing abdominal pain and inability to empty bladder. CT showed pelvic fluid collection S/p CT guided fluid collection drainage 12/14/17 S: Pain much improved. C/o tenderness at drain site. O: Alert Afebrile RRR No increase WOB Abdomen: soft, nontender, +BS Drain with clear/yellow fluid 350ml out over night Plan: Fluid creatinine 7.9, indicating a urinoma. Dr. Hudson from urology consulted. Pt will likely need further imaging. Continue to monitor. 12/15/17 11:13 Objective: Vital Signs Temp Pulse Resp BP Pulse Ox 36.9 C 73 16 96/68 L 95 12/15/17 11:00 12/15/17 11:00 12/15/17 11:00 12/15/17 11:00 12/15/17 11:00 Microbiology 12/14/17 18:05 Gram Stain - Final Pelvis - Aspirate Laboratory Results 12/14/17 18:05 12/14/17 12/15/17 12/16/17 05:59 05:59 05:59 Intake Total 275 Output Total 1850 350 Balance -1575 -350 PT 13.6 SEC (12.0-15.0) 12/14/17 09:45 INR 1.02 (0.83-1.16) 12/14/17 09:45 ICD10 Worksheet Patient Problems: Problems Problem Status Onset Intra-abdominal fluid collection Acute Rectal prolapse Acute
[2017-12-15] MEDS ORDERED: IOPAMIDOL (ISOVUE-300) 100 ML BTL ONE (11:42)
--- NOTE | 2017-12-15 11:44 | GCON ---
[f rep st] CONSULTATION REASON FOR CONSULTATION: Abdominal fluid collection with creatinine level of 8 and serum level is 1. HISTORY: The patient is a 67-year-old female. She had a laparoscopic rectopexy on November 09. She had been tolerating a normal diet. She was complaining of a left lower quadrant pain approximately 3 or 4 days ago. Due to mental deficit, she is not able to give a significant reliable history. She has been having some constipation, some difficulty voiding. She currently has a Gaston catheter in place. She had fall about a week ago. She had a CT scan which showed a large fluid collection. Radiology placed a drain into it, and the fluid from the drain was 8.0, consistent with a urine leak. The fluid is mainly on the left side. PAST MEDICAL HISTORY: Significant for hypothyroidism, anxiety, chronic constipation, pulmonary disease, coronary artery disease. She has had a CVA. She has depression, hypertension, reflux disease, hypoxemia. PAST SURGICAL HISTORY: Significant for hemorrhoid banding, hysterectomy, and her most recent procedure which was a rectal prolapse surgery approximately 5 weeks ago. MEDICATIONS: She is currently on aspirin, which I recommend we stop since she will likely be needing procedures in the near future. She is also on calcium, Cozaar, docusate, gabapentin, levothyroxine, vitamins, Proventil, simvastatin, vitamin D3, Wellbutrin, and Zyrtec. ALLERGIES: She has no allergies. Since she is not able to provide any history, the history was obtained from the chart. SOCIAL HISTORY: She smoked for 20 years. REVIEW OF SYSTEMS: 10-point review of systems was performed and is negative except for what is in the history of present illness. She had a chest CT which revealed no evidence of any rib fractures. Abdominal CT revealed a 21.4 x 14.1 x 15.3 cm left-sided simple appearing retroperitoneal cystic fluid collection. At this point, most concerning for urine leak in the urinary system. I contacted Dr. Alok Humphrey of interventional radiology. Currently, the plan would be for a CT cystogram today to verify the bladder is not the source of the leak. If that is negative, she will likely need a left nephrostomy, we discussed discussed options of retrograde stent or trying to do an antegrade stent. The system is currently decompressed, but he still feels we could get a left nephrostomy tube in place which would likely be of benefit. If there is a ureteral injury, she will continue to leak until the kidney is drained. Preferentially do a nephrostomy tube. The patient will be made n.p.o. after midnight, but we could get a CT cystogram done today which would be helpful. /[id number]/MODL MTDD
[2017-12-15] MEDS: buPROPion SR 100 MG TAB PO SCH (12:08)
--- NOTE | 2017-12-15 12:39 | PDMN ---
Medical Necessity Medical necessity: C/M review: [place] [facility] [place]: Acute increasing abdominal pain inability to empty bladder, large pelvic fluid collection, urimoma, (21.4 x 14.1 x 15.3 cm left sided retroperitoneal cystic fluid collection extending from the caudal pelvis to the lower pole of the left kidney, displacing bowel and resulting mid to moderate left hydroureteronephrosis on CT 12/14/2017) requiring Gaston catheter placement in ED, 12/14/2017 CT guided percutaneous of multiloculated pelvic collection with 10 Mongolian pigtail catheter placement with MARY bulb - 1600 ml fluid drained , pelvic drain had additional 350 ml clear yellow fluid out overnight, Cr 1.2, peritoneal fluid creatinine 7.9, IV fluids, also requiring Urology consult, planned further imaging, ongoing pelvic drain monitoring, pulse oximetry, supplemental O2, comorbid history 11/09/2017 laparoscopic rectopexy, acquired hypothyroidism, anxiety, COPD, CAD S/P CVA, depression, essential hypertension, GERD, hyperlipidemia, hypoxemia, osteoporosis and restrictive lung disease. ZIGZAGGER-C anticipates > 2 MN LOS for ongoing med nec fro eval and TX of above. Patient is Medicare Advantage which follows guidelines CMS puts forth.
--- NOTE | 2017-12-15 12:46 | SOAPPROG ---
SOAP Progress Note Assessment/Plan: Assessment: Urinoma s/p rectopexy - due to either left ureteral or bladder injury. CT cystogram last night negative for bladder injury, but only 200 cc infused due to pt. intolerance of more contrast (per Dr. Gaytan). I suspect the pt. has a left ureteral injury. Plan: 1. Cancel repeat CT cystogram. 2. Will have interventional radiology proceed with left antegrade nephrostogram , nephrostomy tube placement, and attempted antegrade ureteral stent placement. Case discussed w/ Dr. Hudson. Objective: Vital Signs Temp Pulse Resp BP Pulse Ox 36.9 C 73 16 96/68 L 95 12/15/17 11:00 12/15/17 11:00 12/15/17 11:00 12/15/17 11:00 12/15/17 11:00 Microbiology 12/14/17 18:05 Gram Stain - Final Pelvis - Aspirate Laboratory Results 12/14/17 18:05 12/14/17 12/15/17 12/16/17 05:59 05:59 05:59 Intake Total 275 Output Total 1850 725 Balance -1575 -725 PT 13.6 SEC (12.0-15.0) 12/14/17 09:45 INR 1.02 (0.83-1.16) 12/14/17 09:45 ICD10 Worksheet Patient Problems: Problems Problem Status Onset Intra-abdominal fluid collection Acute Rectal prolapse Acute
--- NOTE | 2017-12-15 15:28 | ASMTCMCOM ---
CM Note CM Note Notes: Pt. is a 67-year-old woman admitted with a L uretal injury. Hx. hypothyroidism, COPD, CAD, CVA, depression, anxiety, HTN, hyperlipidemia. Former smoker. No PT/OT ordered as of yet. Pt. has supportive family and lives w/ . Daughter lives nearby. CM to follow for d/c POC. Date Signed: 12/15/2017 03:27 PM Electronically Signed By:Iwona Santamaria LCSW
[2017-12-15] MEDS: BACLOFEN 10 MG TAB PO SCH (21:09)
[2017-12-15] MEDS: PRAVASTATIN SODIUM 10 MG TAB PO SCH (21:10)
[2017-12-16] MEDS: OXYCODONE/APAP 5/325 TAB PO PRN ×2 (03:27→08:19)
[2017-12-16] MEDS: LEVOTHYROXINE 75 MCG TAB PO SCH (06:11)
[2017-12-16 08:15] LABS: PLATELET COUNT 366 10^3/uL (150-400)
[2017-12-16] MEDS: GABAPENTIN 100 MG CAP PO SCH ×3 (08:18→18:11)
[2017-12-16] MEDS: DOCUSATE SODIUM 100 MG CAP PO SCH ×2 (08:27→21:17)
[2017-12-16] MEDS: CHOLECALCIFEROL VIT D3 1,000 UNITS TAB PO SCH (08:27)
[2017-12-16] MEDS: CETIRIZINE 10 MG TAB PO SCH (08:27)
[2017-12-16] MEDS: LOSARTAN POTASSIUM 25 MG TAB PO SCH (08:27)
[2017-12-16] MEDS: ASPIRIN 81 MG CHEWABLE TAB PO SCH (08:27)
[2017-12-16] MEDS: POLYETHYLENE GLYCOL 3350 17 GM PKT PO SCH (08:27)
--- NOTE | 2017-12-16 09:20 | SOAPPROG ---
SOAP Progress Note Assessment/Plan: Assessment: 67 y/o female s/p laparoscopic rectopexy 5 weeks ago presented to ED yesterday with increasing abdominal pain and inability to empty bladder. CT showed pelvic fluid collection S/p CT guided fluid collection drainage 12/14/17 S: Pain much improved. C/o tenderness at drain site. O: Alert Afebrile RRR No increase WOB Abdomen: soft, nontender, +BS Drain with clear/yellow fluid 350ml out over night Plan: Fluid creatinine 7.9, indicating a urinoma. Dr. Hudson from urology consulted. Pt will likely need further imaging. Continue to monitor. 12/15/17 11:13 12/16/17 09:18 Denies pain. Plan for urology to insert nephrostomy tube and ureteral stent to left ureter tomorrow. Afebrile. Drain in place with urine. Objective: Vital Signs Temp Pulse Resp BP Pulse Ox 36.8 C 75 18 117/71 96 12/16/17 07:24 12/16/17 07:24 12/16/17 07:24 12/16/17 07:24 12/16/17 07:24 Microbiology 12/14/17 18:05 Gram Stain - Final Pelvis - Aspirate Laboratory Results 12/16/17 04:45 12/16/17 04:45 12/15/17 12/16/17 12/17/17 05:59 05:59 05:59 Intake Total 275 Output Total 1850 2225 150 Balance -1575 -2225 -150 PT 13.6 SEC (12.0-15.0) 12/14/17 09:45 INR 1.02 (0.83-1.16) 12/14/17 09:45 ICD10 Worksheet Patient Problems: Problems Problem Status Onset Intra-abdominal fluid collection Acute Rectal prolapse Acute
--- NOTE | 2017-12-16 10:02 | SOAPPROG ---
SOAP Progress Note Assessment/Plan: Assessment: pt with out any specific complaints today. labs reviewed and stable abd - soft, nd, bs pos, mild tenderness around drain, no signs of infect Plan: NPO after MN and left nephrostomy tube w possible left stent per IR. 12/16/17 10:00 Objective: Vital Signs Temp Pulse Resp BP Pulse Ox 36.8 C 75 18 117/71 96 12/16/17 07:24 12/16/17 07:24 12/16/17 07:24 12/16/17 07:24 12/16/17 07:24 Microbiology 12/14/17 18:05 Gram Stain - Final Pelvis - Aspirate Laboratory Results 12/16/17 04:45 12/16/17 04:45 12/15/17 12/16/17 12/17/17 05:59 05:59 05:59 Intake Total 275 Output Total 1850 2225 150 Balance -1575 -2225 -150 PT 13.6 SEC (12.0-15.0) 12/14/17 09:45 INR 1.02 (0.83-1.16) 12/14/17 09:45 ICD10 Worksheet Patient Problems: Problems Problem Status Onset Intra-abdominal fluid collection Acute Rectal prolapse Acute
[2017-12-16] MEDS: SENNOSIDES/DOCUSATE SODIUM TAB PO SCH ×2 (10:25→21:17)
[2017-12-16] MEDS: buPROPion SR 100 MG TAB PO SCH (11:58)
[2017-12-16] MEDS: ACETAMINOPHEN 325 MG TAB PO PRN (12:54)
--- NOTE | 2017-12-16 13:44 | ASMTCMCOM ---
CM Note CM Note Notes: CM met with patient and Willem who is inquiring about the financing aspect of the inpatient stay, CM to email finance to follow up with tomorrow. Willem also discussed his concern around discharge as he reports an awful experience with the last facility she went to, [facility]. Willem mentioned reports to the state and legal involvement regarding this experience The member voices her strong interest in going home when discharging and Willem states the home environment is set up appropriately for her to go home. CM stated we will follow her progress and discuss the recommendations for discharge. Willem mentioned Diane has been to [facility] in [place] after a stroke 7 years ago and they were pleased with this care. The patient is to undergo a procedure/repair tomorrow. Discharge TBD at this time, CM to follow and address CM needs. D/C plan: TBD Date Signed: 12/16/2017 01:43 PM Electronically Signed By:Suyapa Santoro
[2017-12-16] MEDS: BACLOFEN 10 MG TAB PO SCH (21:15)
[2017-12-16] MEDS: PRAVASTATIN SODIUM 10 MG TAB PO SCH (21:15)
[2017-12-17] MEDS ORDERED: NS 1,000 ML IV SCH
[2017-12-17] MEDS: OXYCODONE/APAP 5/325 TAB PO PRN ×2 (01:08→23:50)
[2017-12-17] MEDS: LEVOTHYROXINE 75 MCG TAB PO SCH (04:52)
[2017-12-17] MEDS: DOCUSATE SODIUM 100 MG CAP PO SCH ×2 (10:05→21:06)
[2017-12-17] MEDS: GABAPENTIN 100 MG CAP PO SCH ×3 (10:05→18:05)
[2017-12-17] MEDS: CHOLECALCIFEROL VIT D3 1,000 UNITS TAB PO SCH (10:06)
[2017-12-17] MEDS: SENNOSIDES/DOCUSATE SODIUM TAB PO SCH ×2 (10:06→21:06)
[2017-12-17] MEDS: LOSARTAN POTASSIUM 25 MG TAB PO SCH (10:06)
[2017-12-17] MEDS: ASPIRIN 81 MG CHEWABLE TAB PO SCH (10:08)
[2017-12-17] MEDS: CETIRIZINE 10 MG TAB PO SCH (10:08)
--- NOTE | 2017-12-17 10:16 | SOAPPROG ---
SOAP Progress Note Assessment/Plan: Assessment: 67 y/o female s/p laparoscopic rectopexy 5 weeks ago presented to ED yesterday with increasing abdominal pain and inability to empty bladder. CT showed pelvic fluid collection S/p CT guided fluid collection drainage 12/14/17 S: Pain much improved. C/o tenderness at drain site. O: Alert Afebrile RRR No increase WOB Abdomen: soft, nontender, +BS Drain with clear/yellow fluid 350ml out over night Plan: Fluid creatinine 7.9, indicating a urinoma. Dr. Hudson from urology consulted. Pt will likely need further imaging. Continue to monitor. 12/15/17 11:13 12/16/17 09:18 Denies pain. Plan for urology to insert nephrostomy tube and ureteral stent to left ureter tomorrow. Afebrile. Drain in place with urine. 12/17/17 10:15 Stable. Continues to deny pain. Nephrostomy tube and ureteral stent placement today. Afebrile. Pelvic drain in place, dressing is cdi. +BS. Objective: Vital Signs Temp Pulse Resp BP Pulse Ox 36.9 C 78 14 118/73 96 12/17/17 07:19 12/17/17 07:19 12/17/17 07:19 12/17/17 10:06 12/17/17 07:19 Microbiology 12/14/17 18:05 Gram Stain - Final Pelvis - Aspirate Laboratory Results 12/16/17 04:45 12/17/17 04:38 12/16/17 12/17/17 12/18/17 05:59 05:59 05:59 Intake Total 400 Output Total 2223 1675 Balance -2225 -1275 PT 13.6 SEC (12.0-15.0) 12/14/17 09:45 INR 1.02 (0.83-1.16) 12/14/17 09:45 ICD10 Worksheet Patient Problems: Problems Problem Status Onset Intra-abdominal fluid collection Acute Rectal prolapse Acute
[2017-12-17] MEDS: POLYETHYLENE GLYCOL 3350 17 GM PKT PO SCH (13:05)
[2017-12-17] MEDS: buPROPion SR 100 MG TAB PO SCH (13:18)
--- NOTE | 2017-12-17 20:00 | SOAPPROG ---
SOAP Progress Note Assessment/Plan: Assessment: Urinoma s/p rectopexy - due to either left ureteral or bladder injury. CT cystogram from this past weekend negative for bladder injury, but only 200 cc infused due to pt. intolerance of more contrast (per Dr. Gaytan). I suspect the pt. has a left ureteral injury. Pt. was scheduled today to have interventional radiology proceed with left antegrade nephrostogram, nephrostomy tube placement, and attempted antegrade ureteral stent placement. However, due to IR's need for general anesthesia to perform these procedures, the case was postponed until tomorrow. However, there was an initial reluctance to perform these procedures by Dr. Calvert, the scheduled IR physician on Sunday, because of the pt's ASA intake. I emphasized the need to have these procedures done TERRI (due to weekend IR request, the procedures had already been postponed since Sunday until today) and that, in my opinion, the benefits of these needed procedures outweigh the risk of renal hemorrhage during or afterwards. After speaking w/ Dr. Calvert by phone regarding the above, I was later informed by text message this evening that IR would indeed proceed with scheduled procedures tomorrow. Plan: Pt. is now NPO after MN for above-mentioned procedures. Objective: Vital Signs Temp Pulse Resp BP Pulse Ox 36.6 C 83 16 95/65 L 95 12/17/17 19:39 12/17/17 19:39 12/17/17 19:39 12/17/17 19:39 12/17/17 19:39 Microbiology 12/14/17 18:05 Gram Stain - Final Pelvis - Aspirate Laboratory Results 12/16/17 04:45 12/17/17 04:38 12/16/17 12/17/17 12/18/17 05:59 05:59 05:59 Intake Total 400 800 Output Total 2225 5350 750 Balance -2225 -1275 50 PT 13.6 SEC (12.0-15.0) 12/14/17 09:45 INR 1.02 (0.83-1.16) 12/14/17 09:45 ICD10 Worksheet Patient Problems: Problems Problem Status Onset Intra-abdominal fluid collection Acute Rectal prolapse Acute
[2017-12-17] MEDS: BACLOFEN 10 MG TAB PO SCH (21:04)
[2017-12-17] MEDS: PRAVASTATIN SODIUM 10 MG TAB PO SCH (21:06)
[2017-12-18] MEDS: LEVOTHYROXINE 75 MCG TAB PO SCH (05:25)
[2017-12-18] MEDS: GABAPENTIN 100 MG CAP PO SCH ×3 (08:26→18:13)
[2017-12-18] MEDS: SENNOSIDES/DOCUSATE SODIUM TAB PO SCH ×2 (08:26→20:07)
[2017-12-18] MEDS ORDERED: levOFLOXACIN 500 MG/DEXTROSE 100 ML IV ONE ×3 (09:00→15:00)
[2017-12-18] MEDS: DOCUSATE SODIUM 100 MG CAP PO SCH ×2 (10:31→20:07)
[2017-12-18] MEDS: POLYETHYLENE GLYCOL 3350 17 GM PKT PO SCH (10:31)
[2017-12-18] MEDS: CHOLECALCIFEROL VIT D3 1,000 UNITS TAB PO SCH (10:38)
[2017-12-18] MEDS: CETIRIZINE 10 MG TAB PO SCH (10:38)
--- NOTE | 2017-12-18 11:00 | PDGENHP ---
History & Physical Chief Complaint: Left pelvic urinonoma History of Present Illness: 67 yo F who underwent rectopexy a little over 5 wks ago who presented 4 days ago w left pelvic fluid collection. On pelvic CT , distal Lt ureter is anteriorly displaced and appears to empty into the collection. Collection was drained percutaneously. Fluid w Cr of 8, consistent with urinoma. Lt nephrostomy and left ureteral stent, if possible, are requested. Pt denies pain, F/C. Pt receiving ASA 81 mg until 1 day ago. She and her are aware of and accept the slightly increased risk of bleeding. Pertinent Past, Social, Family History: Non-contributory Relevant Physical Exam: Obese, appropriately TTP around LLQ drainage cath Cardiorespiratory Assessment: RRR, normal resp effort, equal excursions
[2017-12-18] MEDS: LOSARTAN POTASSIUM 25 MG TAB PO SCH (11:07)
[2017-12-18] MEDS: buPROPion SR 100 MG TAB PO SCH (11:36)
--- NOTE | 2017-12-18 13:42 | PDANEPAE ---
ANE Past Medical History - Cardiovascular History Hx Hypertension: Yes Hx Arrhythmias: No Hx Chest Pain: No Hx Coronary Artery / Peripheral Vascular Disease: Yes Hx CHF / Valvular Disease: No Hx Palpitations: No Cardiovascular History Comment: known CAD - Pulmonary History Hx COPD: Yes Hx Asthma/Reactive Airway Disease: Yes Hx Recent Upper Respiratory Infection: Yes Hx Oxygen in Use at Home: Yes O2 in Use at Home (L/minute): 2 Hx Sleep Apnea: Yes Sleep Apnea Screening Result - Last Documented: Positive Pulmonary History Comment: restrictive lung disease. hypoxemia - Neurologic History Hx Cerebrovascular Accident: Yes Hx Seizures: No Hx Dementia: No Neurologic History Comment: stroke 01/04 expressive aphasia, right side weakness - Endocrine History Hx Diabetes: No Obesity: yes, severe - Renal History Hx Renal Disorders: No - Liver History Hx Hepatic Disorders: No - Cancer History Hx Cancer: No - Congenital Disorder History Hx Congenital Disorders: No - GI History Hx Gastrointestinal Disorders: Yes Gastrointestinal History Comment: reflux - Other Health History Other Health History: macular degeneration. upper and lower dentures. right sided weakness. bruises easily. pt cannot distinguish between hot and cold with right side - Chronic Pain History Chronic Pain: No (head hurts all the time) - Surgical History Prior Surgeries: colonoscopy ANE Review of Systems Review of systems is: negative Review of Systems: - Exercise capacity Exercise capacity: <4 METS ANE Patient History - Allergies Allergies/Adverse Reactions: No Known Allergies Allergy (Verified 12/14/17 08:44) - Home Medications Home medications: home medication list seen and reviewed Home Medications: C/E/Zn/Cu/OM3/DHA/EPA/LUT/ZEAX [Preservision Areds 2 Softgel] 1 each PO DAILY [Last Taken 12/13/17] Carboxymethylcellulose 1% [Refresh Celluvisc (*)] 1 drop EACHEYE DAILY PRN 07/16 [Last Taken Unknown] Cetirizine [ZyrTEC 10 mg (*)] 10 mg PO DAILY 07/16/11 [Last Taken 12/13/17] Gabapentin [Neurontin 100 MG (*)] 200 mg PO TID@08,,18 07/16/11 [Last Taken 18:00] Multivitamins [Multivitamin (*)] 1 each PO DAILY@12 07/16/11 [Last Taken ] Simvastatin [Zocor] 5 mg PO HS 07/16/11 [Last Taken 12/13/17] buPROPion SR [Wellbutrin 100mg SR (*)] 100 mg PO DAILY@12 07/16/11 [Last Taken 12/13/17] Aspirin [Aspirin 81mg (*)] 81 mg PO DAILY 11/07/17 [Last Taken 12/13/17] Cholecalciferol Vit D3 [Vitamin D3 (*)] 1,000 units PO DAILY 11/07/17 [Last Taken 12/13/17] Herbals/Supplements -Info Only 1 ea PO DAILY 11/07/17 [Last Taken Unknown] Losartan Potassium [Cozaar 25 mg (*)] 25 mg PO DAILY 11/07/17 [Last Taken ] Docusate Sodium [Colace 100 MG (*)] 200 mg PO BID 11/09/17 [Last Taken 12/13/17 21:00] Acetaminophen [Tylenol ES 500 mg (*)] 500 mg PO Q6 PRN 12/14/17 [Last Taken 22:00] Baclofen [Baclofen 10 mg (*)] 5 mg PO HS 12/14/17 [Last Taken 12/12/17] Levothyroxine [Synthroid 75 mcg (*)] 75 mcg PO DAILY06 12/14/17 [Last Taken ] Magnesium Oxide [Magnesium Oxide 400 mg (*)] 400 mg PO DAILY 12/14/17 [Last Taken 12/13/17] Polyethylene Glycol 3350 [Miralax 17 gm (*)] 17 gm PO DAILY 12/14/17 [Last Taken 12/13/17] - NPO status NPO Since - Liquids (Date): 12/18/17 NPO Since - Liquids (Time): 00:00 NPO Since - Solids (Date): 12/18/17 NPO Since - Solids (Time): 00:00 - Smoking Hx Smoking Status: Former smoker - Family Anes Hx Family Hx Anesthesia Complications: none ANE Labs/Vital Signs - Labs Result Diagrams: 12/16/17 04:45 12/17/17 04:38 - Vital Signs Blood Pressure: 95/62 Heart Rate: 74 Respiratory Rate: 18 O2 Sat (%): 94 Height: 149.86 cm Weight: 97.069 kg ANE Physical Exam - Airway Neck exam: FROM Mallampati Score: Class 2 Mouth exam: dentures - Pulmonary Pulmonary: no respiratory distress - Cardiovascular Cardiovascular: regular rate and rhythym - ASA Status ASA Status: III ANE Anesthesia Plan Anesthesia Plan: general endotracheal anesthesia
[2017-12-18] MEDS ORDERED: PROPOFOL 200 MG/20 ML VIAL ONE (14:20)
[2017-12-18] MEDS ORDERED: fentaNYL 100 MCG/2 ML INJ ONE (14:20)
[2017-12-18] MEDS ORDERED: ROCURONIUM 50 MG/5 ML VIAL ONE ×2 (14:23→14:58)
[2017-12-18] MEDS ORDERED: LIDOCAINE 2% 5 ML SDV ONE (14:24)
[2017-12-18] MEDS ORDERED: DEXAMETHASONE 4 MG/ML VIAL ONE (15:03)
[2017-12-18] MEDS ORDERED: SUGAMMADEX SODIUM 200 MG/2 ML VIAL IVP ONE (15:11)
[2017-12-18] MEDS ORDERED: ONDANSETRON 4 MG/2 ML VIAL ONE (15:11)
--- NOTE | 2017-12-18 15:22 | POSTANESTH ---
Post Anesthetic Evaluation Cardiovascular Status: Normal, Stable Respiratory Status: Normal, Stable Level of Consciousness/Mental Status: Can Participate in Eval Pain Control: Adequate, Prn Tx Ordered Nausea/Vomiting Control: Adequate, Prn Tx Ordered Complications Possibly Related to Anesthesia: None Noted
[2017-12-18] MEDS ORDERED: IOPAMIDOL (ISOVUE-300) 100 ML BTL ONE (15:24)
[2017-12-18] MEDS ORDERED: oxyCODONE IR 5 MG TAB PO PRN (16:00)
[2017-12-18] MEDS ORDERED: HYDROmorphONE/DILAUDID 2 MG/ML INJ IVP PRN (16:00)
[2017-12-18] MEDS ORDERED: NALOXONE HCL 0.4 MG/ML INJ IVP PRN (16:00)
[2017-12-18] MEDS ORDERED: HYDROCODONE/APAP 5/325 TAB PO PRN (16:00)
[2017-12-18] MEDS ORDERED: fentaNYL 100 MCG/2 ML INJ IVP PRN (16:00)
[2017-12-18] MEDS ORDERED: LR 500 ML IV PRN (16:00)
[2017-12-18] MEDS ORDERED: ACETAMINOPHEN 500 MG TAB PO PRN (16:00)
[2017-12-18] MEDS ORDERED: ONDANSETRON 4 MG/2 ML VIAL IVP PRN (16:00)
[2017-12-18] MEDS ORDERED: PROMETHAZINE HCL 25 MG/ML INJ IVP PRN (16:00)
[2017-12-18] MEDS ORDERED: ALBUTEROL 3 ML DEYVIAL IH PRN (16:00)
--- NOTE | 2017-12-18 16:11 | PDRADPN ---
Radiology Procedure Note Date of Procedure: 12/18/17 Radiologist: Ronn Calvert Anesthesiologist: Zahraa Anesthesia: GET(General Endotracheal) Pre-op Diagnosis: Urinoma Post-op Diagnosis: Same Indication: Urinoma Procedure: Nephrostomy tube placement Finding(s): Distal ureter transected. Attempts to find true lumen distal to transection unsuccessful. 10-Fr nephrostomy placed. Inf/Abcess present in the surg proc area at time of surgery?: No Complications: No immediate Drains: Nephrostomy (10-Fr)
[2017-12-18] MEDS: OXYCODONE/APAP 5/325 TAB PO PRN (20:08)
[2017-12-18] MEDS: BACLOFEN 10 MG TAB PO SCH (20:08)
[2017-12-18] MEDS: PRAVASTATIN SODIUM 10 MG TAB PO SCH (20:09)
--- NOTE | 2017-12-18 23:59 | SOAPPROG ---
CARLOS ALBERTO Progress Note Assessment/Plan: Assessment: Based on left antegrade nephrostoureterogram images, it appears the pt. has complete ureteral transection at the level of the superior aspect of the SI joint. Nephrostomy tube placed. Plan: Will discuss IR findings and management options w/ pt. on Sun. Objective: Vital Signs Temp Pulse Resp BP Pulse Ox 36.5 C 76 16 97/52 L 91 L 12/18/17 20:39 12/18/17 20:39 12/18/17 20:39 12/18/17 20:39 12/18/17 20:39 Microbiology 12/14/17 18:05 Gram Stain - Final Pelvis - Aspirate Laboratory Results 12/16/17 04:45 12/17/17 04:38 12/17/17 12/18/17 12/19/17 05:59 05:59 05:59 Intake Total 400 800 850 Output Total 1675 1150 860 Balance -1275 -350 -10 PT 13.6 SEC (12.0-15.0) 12/14/17 09:45 INR 1.02 (0.83-1.16) 12/14/17 09:45 ICD10 Worksheet Patient Problems: Problems Problem Status Onset Intra-abdominal fluid collection Acute Rectal prolapse Acute
[2017-12-19] MEDS: OXYCODONE/APAP 5/325 TAB PO PRN ×3 (00:25→10:55)
[2017-12-19] MEDS: LEVOTHYROXINE 75 MCG TAB PO SCH (05:48)
[2017-12-19] MEDS: GABAPENTIN 100 MG CAP PO SCH ×2 (09:24→12:40)
[2017-12-19] MEDS: CETIRIZINE 10 MG TAB PO SCH (09:26)
[2017-12-19] MEDS: DOCUSATE SODIUM 100 MG CAP PO SCH (09:26)
[2017-12-19] MEDS: CHOLECALCIFEROL VIT D3 1,000 UNITS TAB PO SCH (09:27)
[2017-12-19] MEDS: LOSARTAN POTASSIUM 25 MG TAB PO SCH (10:51)
[2017-12-19] MEDS: POLYETHYLENE GLYCOL 3350 17 GM PKT PO SCH (10:52)
[2017-12-19] MEDS: SENNOSIDES/DOCUSATE SODIUM TAB PO SCH (10:52)
--- NOTE | 2017-12-19 11:19 | SOAPPROG ---
SOAP Progress Note Assessment/Plan: Assessment: 67 y/o female s/p laparoscopic rectopexy 5 weeks ago presented to ED yesterday with increasing abdominal pain and inability to empty bladder. CT showed pelvic fluid collection S/p CT guided fluid collection drainage 12/14/17 S: Pain much improved. C/o tenderness at drain site. O: Alert Afebrile RRR No increase WOB Abdomen: soft, nontender, +BS Drain with clear/yellow fluid 350ml out over night Plan: Fluid creatinine 7.9, indicating a urinoma. Dr. Hudson from urology consulted. Pt will likely need further imaging. Continue to monitor. 12/15/17 11:13 12/16/17 09:18 Denies pain. Plan for urology to insert nephrostomy tube and ureteral stent to left ureter tomorrow. Afebrile. Drain in place with urine. 12/17/17 10:15 Stable. Continues to deny pain. Nephrostomy tube and ureteral stent placement today. Afebrile. Pelvic drain in place, dressing is cdi. +BS. 12/19/17 11:[address] Galvan and Dr. Calvert, interventional radiologist. Per Dr. Calvert, he was able to get a nephrostomy tube in place yesterday in IR, however , he was unable to thread a ureteral stent into the left ureter. Plan for urology to see today. Objective: Vital Signs Temp Pulse Resp BP Pulse Ox 36.7 C 77 18 105/61 93 12/19/17 11:05 12/19/17 11:05 12/19/17 11:05 12/19/17 11:05 12/19/17 11:05 Microbiology 12/14/17 18:05 Gram Stain - Final Pelvis - Aspirate Laboratory Results 12/16/17 04:45 12/17/17 04:38 12/18/17 12/19/17 12/20/17 05:59 05:59 05:59 Intake Total 800 850 250 Output Total 1150 1410 Balance -350 -560 250 PT 13.6 SEC (12.0-15.0) 12/14/17 09:45 INR 1.02 (0.83-1.16) 12/14/17 09:45 ICD10 Worksheet Patient Problems: Problems Problem Status Onset Intra-abdominal fluid collection Acute Rectal prolapse Acute
--- NOTE | 2017-12-19 11:53 | ASMTCMCOM ---
CM Note CM Note Notes: CM spoke w/ Akilah Spring NP regarding d/c POC. Pt will be here for awhile. Pt will need to have a ureteral stent placed into the left ureter. Pt had the nephrostomy tube placed yesterday in IR. Needs are TBD at this time. CM to follow. Plan: TBD Date Signed: 12/19/2017 11:53 AM Electronically Signed By:ANDREA Dixon
[2017-12-19] MEDS: buPROPion SR 100 MG TAB PO SCH (12:40)
[2017-12-19 15:32] VITALS: BP 95/66
--- NOTE | 2017-12-19 16:45 | PDIAF ---
- Diagnosis Code Status: Full Code - Medication Management Discharge Medications: Medications to Continue on Transfer C/E/Zn/Cu/OM3/DHA/EPA/LUT/ZEAX [Preservision Areds 2 Softgel] 1 each PO DAILY [Last Taken 12/13/17] Carboxymethylcellulose 1% [Refresh Celluvisc (*)] 1 drop EACHEYE DAILY PRN 07/16 [Last Taken Unknown] Cetirizine [ZyrTEC 10 mg (*)] 10 mg PO DAILY 07/16/11 [Last Taken 12/13/17] Gabapentin [Neurontin 100 MG (*)] 200 mg PO TID@,,07/16/11 [Last Taken 18:00] Multivitamins [Multivitamin (*)] 1 each PO DAILY@12 07/16/11 [Last Taken ] Simvastatin [Zocor] 5 mg PO HS 07/16/11 [Last Taken 12/13/17] buPROPion SR [Wellbutrin 100mg SR (*)] 100 mg PO DAILY@12 07/16/11 [Last Taken 12/13/17] Cholecalciferol Vit D3 [Vitamin D3 (*)] 1,000 units PO DAILY 11/07/17 [Last Taken 12/13/17] Herbals/Supplements -Info Only 1 ea PO DAILY 11/07/17 [Last Taken Unknown] Losartan Potassium [Cozaar 25 mg (*)] 25 mg PO DAILY 11/07/17 [Last Taken ] Docusate Sodium [Colace 100 MG (*)] 200 mg PO BID 11/09/17 [Last Taken 12/13/17 21:00] Acetaminophen [Tylenol ES 500 mg (*)] 500 mg PO Q6 PRN 12/14/17 [Last Taken 22:00] Baclofen [Baclofen 10 mg (*)] 5 mg PO HS 12/14/17 [Last Taken 12/12/17] Levothyroxine [Synthroid 75 mcg (*)] 75 mcg PO DAILY06 12/14/17 [Last Taken ] Magnesium Oxide [Magnesium Oxide 400 mg (*)] 400 mg PO DAILY 12/14/17 [Last Taken 04/19/18] Polyethylene Glycol 3350 [Miralax 17 gm (*)] 17 gm PO DAILY 12/14/17 [Last Taken 12/13/17] Sennosides/Docusate Sodium [Senokot-S] 1 - 2 tab PO BID tab 12/19/17 [Last Taken Unknown] Discharge Medications: Refer to the Discharge Home Medication list for PRN reason. - Orders Services needed: Home Care, Registered Nurse, Physical Therapy, Occupational Therapy Home Care Face to Face: I certify that this patient was under my care and that I had the required [id number] encounter meeting the encounter requirements on the discharge day. My findings support the fact that the patient is homebound as defined in Home Care Face to Face Continued: CMS Chapter 7 Medicare Benefits Manual 30.1.1 , The condition of the patient is such that there exists a normal inability to leave home and consequently, leaving home would require a considerable and taxing effort. Diet Recommendation: no restrictions on diet Diet Texture: Regular Texture Diet Activity/Weight Bearing Restrictions: Please empty and record output from drain. No activity restrictions Additional Instructions: Follow up with Dr. Griffin's office to schedule your ureteral stent procedure. Follow up with Dr. Galvan after in 2 weeks. Call with increased pain or fever. - Follow Up Care Current Providers and Referrals: Iwona Christopher MD [Primary Care Provider] - Radha Griffin MD [Medical Doctor] - 1-2 days Boyd Galvan MD [Medical Doctor] - 12/21/17
--- NOTE | 2017-12-19 16:54 | ASMTLACE ---
[facility] Length of stay for Answers: 4-6 days current admission Acuity / Level of Answers: Yes Care: Did the patient have an inpatient admission? Comorbidities - select Answers: Cerebrovascular disease all that apply (CVA, TIA, aneurysms, vasc ular dementia) Chronic pulmonary disease Coronary Artery Disease Opioid dependence / Chronic pain Other Notes: HTN # of Emergency department Answers: 1-2 visits in the last 6 months Social determinants Answers: Mental health diagnosis (anxiety, depression, pers onality disorders, etc.) Score: 21 Date Signed: 12/19/2017 04:53 PM Electronically Signed By:Glenda Andrade RN
--- NOTE | 2017-12-19 16:54 | ASMTCMCOM ---
CM Note CM Note Notes: Spoke with pt and , discharging today. CM notified Marivel at [facility] Plan:Homecare/ [facility] (RN/CREDIT COMPLIANCE OFFICER) Date Signed: 12/19/2017 04:53 PM Electronically Signed By:Glenda Andrade RN
--- NOTE | 2017-12-19 22:03 | SOAPPROG ---
CARLOS ALBERTO Progress Note Assessment/Plan: Assessment: Complete left mid-ureteral transection at the level of the superior aspect of the SI joint, s/p nephrostomy tube placed yesterday. Pt. is stable but will need surgical management. Management options include attempted left ureteral reimplantation vs. left nephrectomy. Plan: 1. Attempted to discuss current clinical situation w/ pt. but she appears to have very limited ability to comprehend. I spoke w/ the pt's by phone and explained her situation in detail & he appeared to understand, all questions were answered. I have also reviewed the case w/ Dr. Galvan. 2. She may be discharged today w/ nephrostomy tube and pelvic drain. She will likely require, at a minimum, home health care. 3. Arrangements will be made for operative management sometime in the near future. Pt. will FU in my office beforehand. Subjective: Pt. denies pain. Objective: Vital Signs Temp Pulse Resp BP Pulse Ox 36.6 C 75 18 95/66 L 92 12/19/17 15:31 12/19/17 15:31 12/19/17 15:31 12/19/17 15:31 12/19/17 15:31 Microbiology 12/14/17 18:05 Gram Stain - Final Pelvis - Aspirate Laboratory Results 12/16/17 04:45 12/17/17 04:38 12/18/17 12/19/17 12/20/17 05:59 05:59 05:59 Intake Total 800 850 550 Output Total 1150 1410 245 Balance -350 -560 305 PT 13.6 SEC (12.0-15.0) 12/14/17 09:45 INR 1.02 (0.83-1.16) 12/14/17 09:45 Physical Exam - Physical Exam General Appearance: alert, no apparent distress, obese Abdomen: non-tender, soft, other (LLQ drain in place) Back: Other (left nephrostomy tube draining blood-tinged urine) Skin: normal color Neuro/Psych: alert, other (tearful) ICD10 Worksheet Patient Problems: Problems Problem Status Onset Intra-abdominal fluid collection Acute Rectal prolapse Acute
--- NOTE | 2017-12-19 23:48 | SOAPPROG ---
SOAP Progress Note Assessment/Plan: Assessment: 67 yo F w urinoma following rectopexy > 5 wks ago s/p perc urinoma drainage 5 days ago and Lt nephrostomy tube placement 1 day ago. Nephrostomy output up and urinoma output down, appropriately. Vitals stable. Plan: 1. No new recs from an IR standpoint. 2. Further management per Urology. 3. Rec nephrostomy exchange in 3 mos if still needed at that time. Thank you for the opportunity to assist in the care of this pt. 12/19/17 23:43 Subjective: Doing well this am. No pain. No F/C, N/V. Objective: Vital Signs Temp Pulse Resp BP Pulse Ox 36.6 C 75 18 95/66 L 92 12/19/17 15:31 12/19/17 15:31 12/19/17 15:31 12/19/17 15:31 12/19/17 15:31 Microbiology 12/14/17 18:05 Gram Stain - Final Pelvis - Aspirate Laboratory Results 12/16/17 04:45 12/17/17 04:38 12/18/17 12/19/17 12/20/17 05:59 05:59 05:59 Intake Total 800 850 550 Output Total 1150 1410 245 Balance -350 -560 305 PT 13.6 SEC (12.0-15.0) 12/14/17 09:45 INR 1.02 (0.83-1.16) 12/14/17 09:45 Gen: NAD HEENT: Normocephalic, atraumatic, anicteric, OP clear Heart: RRR Lungs: Normal effort, equal excursions Abd: Soft, NT, LLQ drain in place, Lt nephrostomy in place, bag contains a small amount of dark blood-tinged urine ICD10 Worksheet Patient Problems: Problems Problem Status Onset Intra-abdominal fluid collection Acute Rectal prolapse Acute
== END 2017-12-19 18:45 | disposition home health service (06) | DRG 700 ==
LOC: OBSVTOIN 12:21 → INTOOBSV 12:21 → F3E 14:11 → UNDODISIN 12-19 17:59
PROVIDERS: ADMIT Surgery; ATTEND Surgery
PROC: 0W9J30Z Drainage of Pelvic Cavity with Drainage Device, Percutaneous Approach (ICD-10-PCS; 2017-12-14)
PROC: 0T9130Z Drainage of Left Kidney with Drainage Device, Percutaneous Approach (ICD-10-PCS; principal; 2017-12-18 16:17)
DX: N99.81 Other intraoperative complications of genitourinary system (principal); E03.9 Hypothyroidism, unspecified; I10 Essential (primary) hypertension; J44.9 Chronic obstructive pulmonary disease, unspecified; F32.9 Major depressive disorder, single episode, unspecified; E78.5 Hyperlipidemia, unspecified; E66.9 Obesity, unspecified; M81.0 Age-related osteoporosis without current pathological fracture; K21.9 Gastro-esophageal reflux disease without esophagitis; K59.00 Constipation, unspecified; Z86.73 Personal history of transient ischemic attack (TIA), and cerebral infarction without residual deficits; Z87.891 Personal history of nicotine dependence; Z79.82 Long term (current) use of aspirin
CPT/HCPCS: 96374; C1729; C1769; G0378; J1100; J1644; J1956; J2250; J2270; J2310; J2405; J2704; J3010; Q9967

== ENCOUNTER 2017-12-27 11:01 | Inpatient (IN) | payer OTHER ==
[2017-12-27] MEDS ORDERED: cefOXitin SODIUM 2 GM in STERILE WATER INJ 21 ML IV ONE (11:21)
[2017-12-27] MEDS ORDERED: LR 1,000 ML IV ONE (11:24)
--- NOTE | 2017-12-27 12:25 | PDANEPAE ---
ANE History of Present Illness 67 yo with ureteral injury ANE Past Medical History - Cardiovascular History Hx Hypertension: Yes Hx Arrhythmias: No Hx Chest Pain: No Hx Coronary Artery / Peripheral Vascular Disease: Yes Hx CHF / Valvular Disease: No Hx Palpitations: No Cardiovascular History Comment: known CAD - Pulmonary History Hx COPD: Yes Hx Asthma/Reactive Airway Disease: Yes Hx Recent Upper Respiratory Infection: Yes Hx Oxygen in Use at Home: Yes O2 in Use at Home (L/minute): O2 at 2L/ NC for sleeping Hx Sleep Apnea: Yes Sleep Apnea Screening Result - Last Documented: Positive Pulmonary History Comment: restrictive lung disease. hypoxemia - Neurologic History Hx Cerebrovascular Accident: Yes Hx Seizures: No Hx Dementia: No Neurologic History Comment: stroke 01/04 expressive aphasia, right side weakness - Endocrine History Hx Diabetes: No Endocrine History Comment: HYPOTHYROID - Renal History Hx Renal Disorders: No Renal History Comment: L URETERAL INJURY - Liver History Hx Hepatic Disorders: No - Neurological & Psychiatric Hx Hx Neurological and Psychiatric Disorders: Yes Neurological / Psychiatric History Comment: ANXIETY - Cancer History Hx Cancer: No - Congenital Disorder History Hx Congenital Disorders: No - GI History Hx Gastrointestinal Disorders: Yes Gastrointestinal History Comment: reflux - Other Health History Other Health History: macular degeneration. upper and lower dentures. right sided weakness. bruises easily. pt cannot distinguish between hot and cold with right side - Chronic Pain History Chronic Pain: No (head hurts all the time) - Surgical History Prior Surgeries: colonoscopy ANE Review of Systems Review of systems is: negative Review of Systems: - Exercise capacity METS (RN): 3 METS ANE Patient History - Allergies Allergies/Adverse Reactions: acetaminophen [From Percocet] Adverse Reaction (Mild, Verified 12/27/17 11:46) Rash oxycodone [From Percocet] Adverse Reaction (Verified 12/27/17 11:46) Rash - Home Medications Home medications: home medication list seen and reviewed Home Medications: Carboxymethylcellulose 1% [Refresh Celluvisc (*)] 1 drop EACHEYE DAILY PRN 07/16 [Last Taken Unknown] Cetirizine [ZyrTEC 10 mg (*)] 10 mg PO DAILY 07/16/11 [Last Taken 12/13/17] Gabapentin [Neurontin 100 MG (*)] 200 mg PO TID@08,12,18 07/16/11 [Last Taken 18:00] Multivitamins [Multivitamin (*)] 1 each PO DAILY@12 07/16/11 [Last Taken ] Simvastatin [Zocor] 5 mg PO HS 07/16/11 [Last Taken 12/13/17] buPROPion SR [Wellbutrin 100mg SR (*)] 100 mg PO DAILY@12 07/16/11 [Last Taken 12/13/17] Cholecalciferol Vit D3 [Vitamin D3 (*)] 1,000 units PO DAILY@12 11/07/17 [Last Taken 12/13/17] Losartan Potassium [Cozaar 25 mg (*)] 25 mg PO DAILY 11/07/17 [Last Taken ] Docusate Sodium [Colace 100 MG (*)] 200 mg PO BID 11/09/17 [Last Taken 12/13/17 21:00] Acetaminophen [Tylenol ES 500 mg (*)] 500 mg PO Q6 PRN 12/14/17 [Last Taken 22:00] Baclofen [Baclofen 10 mg (*)] 5 mg PO HS 12/14/17 [Last Taken 12/12/17] Levothyroxine [Synthroid 75 mcg (*)] 75 mcg PO DAILY06 12/14/17 [Last Taken ] Magnesium Oxide [Magnesium Oxide 400 mg (*)] 400 mg PO DAILY 12/14/17 [Last Taken 12/13/17] Polyethylene Glycol 3350 [Miralax 17 gm (*)] 17 gm PO DAILY@12 12/14/17 [Last Taken 12/13/17] [place]-3 Fatty Acids [Fish Oil 1000 mg (*)] 1,000 mg PO BID 12/24/17 [Last Taken Unknown] oxyCODONE/APAP 5/325 [Percocet 5/325 (*)] 1 - 2 tab PO Q4-6PRN PRN 12/24/17 [ Last Taken Unknown] - NPO status NPO Status: no food or drink >8 hours NPO Since - Liquids (Date): 12/26/17 NPO Since - Liquids (Time): 06:00 NPO Since - Solids (Date): 12/26/17 NPO Since - Solids (Time): 22:00 - Anes Hx Anes Hx: no prior problems - Smoking Hx Smoking Status: Former smoker - Alcohol Use Alcohol Use: None - Family Anes Hx Family Anes Hx: none Family Hx Anesthesia Complications: none ANE Labs/Vital Signs - Vital Signs Blood Pressure: 114/81 Heart Rate: 84 Respiratory Rate: 18 O2 Sat (%): 93 Height: 149.86 cm Weight: 96.615 kg ANE Physical Exam - Airway Neck exam: decreased ROM Mouth exam: dentures - Pulmonary Pulmonary: no respiratory distress - Cardiovascular Cardiovascular: regular rate and rhythym - ASA Status ASA Status: III
[2017-12-27] MEDS ORDERED: BACITRACIN ZINC 14.2 GM OINTTUBE TP ONE (16:40)
--- NOTE | 2017-12-27 16:57 | POSTOPPROG ---
Post Op Note Date of Operation: 12/28/17 Surgeon: Radha Griffin (# [id number]) Dock Operations Supervisor: Boyd Galvan Anesthesia: GET(General Endotracheal), Spinal (Duramorph) Pre-op Diagnosis: 1. Left ureteral injury 2. Umbilical hernia Post-op Diagnosis: 1. Left ureteral injury 2. Umbilical hernia Procedure: 1. Left ureteral reimplantation w/ psoas hitch 2. Hernia repair Findings: See op note Inf/Abcess present in the surg proc area at time of surgery?: No EBL: 50-100 (100 cc) Complications: None Drains: Pablito Friend (10 Flat), Other Specimen(s): Left ureter
[2017-12-27] MEDS ORDERED: PROMETHAZINE HCL 25 MG/ML INJ IVP PRN ×2 (16:58→17:25)
[2017-12-27] MEDS ORDERED: NALOXONE HCL 0.4 MG/ML INJ IVP PRN ×3 (17:00→18:30)
[2017-12-27] MEDS ORDERED: HYDROmorphONE/DILAUDID 6 MG/30 ML PCA IV PRN (17:00)
[2017-12-27] MEDS ORDERED: CARBOXYMETHYLCELLULOSE 1% 0.4 ML DROPERETTE EACHEYE PRN (17:01)
--- NOTE | 2017-12-27 17:20 | POSTOPPROG ---
Post Op Note Date of Operation: 12/27/17 Surgeon: Boyd Galvan Residential Child Care Counselor: adiel Anesthesiologist: warm Anesthesia: GET(General Endotracheal) Pre-op Diagnosis: incisional hernia Post-op Diagnosis: same Indication: pain Procedure: incisional, ventral hernia repair Findings: 4 cm defect Inf/Abcess present in the surg proc area at time of surgery?: Yes Depth: Organ Space EBL: Minimal Complications: 0 Specimen(s): hernia sac
[2017-12-27] MEDS ORDERED: ONDANSETRON 4 MG/2 ML VIAL IVP PRN ×2 (17:25→18:30)
[2017-12-27] MEDS ORDERED: fentaNYL 100 MCG/2 ML INJ IVP PRN (17:25)
--- NOTE | 2017-12-27 17:27 | POSTANESTH ---
Post Anesthetic Evaluation Cardiovascular Status: Normal, Stable Respiratory Status: Normal, Stable Level of Consciousness/Mental Status: Can Participate in Eval Pain Control: Adequate, Prn Tx Ordered Nausea/Vomiting Control: Adequate, Prn Tx Ordered Complications Possibly Related to Anesthesia: None Noted (Reflux of yellow fluid noted during surgery. No evidence of aspiration in PACU, lungs CTA, no cough, sat 998 on NC)
[2017-12-27] MEDS ORDERED: RN MESSAGE:REGARDING ANALGESIC ORDERING DR MISC SCH (18:30)
[2017-12-27] MEDS: D5W 1/2 NS 1,000 ML IV SCH (20:00)
[2017-12-27] MEDS: cefOXitin SODIUM 2 GM in STERILE WATER INJ 21 ML IV SCH (22:13)
[2017-12-27] MEDS: GABAPENTIN 100 MG CAP PO SCH (22:13)
[2017-12-27] MEDS: BACLOFEN 10 MG TAB PO SCH (22:13)
[2017-12-27] MEDS: PRAVASTATIN SODIUM 10 MG TAB PO SCH (22:14)
[2017-12-27] MEDS: DOCUSATE SODIUM 100 MG CAP PO SCH (22:14)
--- NOTE | 2017-12-28 01:47 | GOP ---
[f rep st] OPERATIVE REPORT DATE OF OPERATION: 12/27/2017 SURGEON: Radha Griffin MD INFORMATICS SPEC: Boyd Galvan MD ANESTHESIA: General endotracheal with Duramorph spinal. PREOPERATIVE DIAGNOSIS: Left ureteral injury, status post left-sided nephrostomy tube placement. POSTOPERATIVE DIAGNOSIS: Left ureteral injury, status post left-sided nephrostomy tube placement. PROCEDURE PERFORMED: 1. Open left ureteroneocystostomy with psoas hitch. 2. Left ureterolysis. 3. Left nephrostomy tube placement. FINDINGS: Complete transection of the left ureter just lateral and cephalad to the sacral promontory. There was extensive periureteral fibrosis and inflammation, which required extensive ureterolysis. The portion of the ureter proximal to the complete transection appeared to be normally viable. SPECIMENS: Distal margin of the transected left ureter. ESTIMATED BLOOD LOSS: Approximately 100 cc. INDICATIONS: This woman was recently found to have complete left ureteral transection and a large pelvic urinoma approximately 1 month following laparoscopic rectopexy. Percutaneous drainage of the urinoma was performed along with left-sided nephrostomy tube placement for temporary management until definitive operative repair could be completed. She presents for definitive operative repair at this time. The indications for the procedures as well as potential risks and complications were discussed with the patient and her preoperatively. They appeared to understand, their questions were answered, and they wished to proceed. Written informed surgical consent was thereafter obtained. DESCRIPTION OF PROCEDURE: The patient was brought to the operating room and administered a Duramorph spinal. She was then placed in the supine position and administered general endotracheal anesthesia. She was placed over the break of the table and the table was flexed approximately 15 degrees. She was placed in a slightly modified frogleg position and secured to the table successfully. The abdomen and genitalia were sterilely prepped and draped in standard fashion. A 20-Bahamian Gaston catheter was placed sterilely on the field and connected to bag drainage. A lower midline incision was made with a scalpel along the line of a prior surgical scar and extended slightly around the left of the side of the umbilicus. An umbilical hernia was immediately identified and was later repaired by Dr. Galvan. The abdomen was then entered in standard fashion utilizing electrocautery. I quickly determined that I would be unable to perform this surgery through a completely retroperitoneal approach due to the presence of abdominal and retroperitoneal scarring from prior operations. The patient also had significant sigmoid diverticulosis with a probable history of repeated bouts of diverticulitis which resulted in a significantly scarred sigmoid colon that was abnormally adherent to the left lateral abdomen. Once the abdominal cavity had been entered in careful fashion , the small bowel contents were retracted in a cephalad fashion above the level of the umbilicus with the use of a curved malleable retractor and a Nate retractor. This resulted in nice visualization of the root of mesentery, sacral promontory, and left retroperitoneum with the overlying posterior peritoneum. I initially attempted to identify the location of the left ureter just above the level of sacral promontory and medial to the sigmoid colon. The posterior peritoneum was incised in this location with electrocautery. I then carefully dissected in the region where I expected the ureter to be. I stayed just above the level of the iliac vessels. Some large veins were identified that appeared to be mesenteric vessels. I was ultimately able to identify a tubular structure which was possibly ureter. It was isolated at this location carefully with a right angle clamp and a vessel loop. I then extended the dissection of this tubular structure further distally toward the pelvis. However, exposure became more difficult and, at this point, I decided to reflect the colon medially and follow this tubular structure further distally while staying lateral to the colon. Therefore, Dr. Galvan then mobilized the left colon off the lateral abdominal wall and reflected it carefully across the midline. I was then able to more definitively identify the location of the ureter, which also was confirmed to be the tubular structure that I previously dissected medial to the colon. I followed this ureter distally to a point of transection that was just lateral to the sacral promontory. The portion of the ureter distal to the transection was identified but not felt to be usable. Therefore, I decided to proceed with attempted left ureteral reimplantation. However, this was also going to require a significant psoas hitch. Once the ureter had been completely mobilized and extensive ureterolysis performed as far proximally toward the kidney as possible, I then began my bladder mobilization. It should be mentioned that there was significant left periureteral fibrosis and inflammation in the retroperitoneum at the location of dissection. This required extensive ureterolysis in order to mobilize the ureter and allow for enough slack to perform ureteral reimplantation. Care was taken to try and preserve the adventitial vascularity to the ureter as much as possible. I then turned my attention to bladder mobilization. The bladder was mobilized posteriorly and laterally using combination electrocautery and scissors. The posterior peritoneum was carefully peeled off the posterior aspect of the bladder with electrocautery. Once adequate mobilization of the bladder had been completed, I determined a suitable location along the left side of the bladder for performance of the psoas hitch. The psoas muscle was identified with the overlying fascia. The genitofemoral nerve could not be definitively visualized. I then used a total of 3 separate 0 Vicryl sutures to approximate the psoas fascia to the seromuscular layer of the left lateral and posterior aspects of the bladder. This resulted in a nice appearing psoas hitch. I then created a cystotomy along the left anterolateral aspect of the bladder with electrocautery. The bladder lumen was identified and the cystotomy extended in order to define a suitable site for reimplantation of the ureter. A site for reimplantation of the ureter was identified just below the level of the created cystotomy. Electrocautery was used to open the bladder at this location and create an adequate diameter within the bladder for reimplantation purposes. A 4 -0 Vicryl stitch was then placed through the distal aspect of the dissected ureter and used as a stay stitch. This stitch was then used to pull the distal ureter through the created hole in the bladder where the ureter reimplantation would be performed. The ureter was then carefully spatulated along the posterior aspect with tenotomy scissors. It should be mentioned that the most distal aspect of the dissected ureter was excised and sent to Pathology as a permanent specimen. The remaining portion of the dissected ureter appeared to be nicely viable. Two running 4-0 Vicryl sutures were then used to perform a [id number] approximating anastomosis between the bladder and the ureter. This was done while making sure that the ureter was not twisted nor under any undue tension. After completing the anastomosis, a 0.035 inch hydrophilic guidewire and a 6-Bahamian by 26 cm hydrophilic ureteral stent were then advanced through the ureter toward the renal pelvis. Once the stent was thought to be in good position, the guidewire was removed while placing the distal aspect of the stent within the bladder. The result was a nice appearing reimplantation with no excessive tension apparent on the ureter just proximal to the reimplantation site. The bladder was then closed by first approximating the mucosa with a running 4-0 chromic suture. The seromuscular layers over the mucosa were then reapproximated with running 2-0 Vicryl suture. The bladder was then filled with approximately 200 cc of sterile water, and no leakage from the bladder in any location was identified. The operative site appeared to be fairly hemostatic at this point. A 10 flat Pablito-Friend drain was placed in the region if the left paracolic gutter, lateral to the bladder and anastomosis, and ultimately secured to the skin through a separate stab wound in the left lower quadrant with a 2-0 silk suture and connected to bulb suction. Dr. Galvan then proceeded to repair the umbilical hernia. Closure of the abdomen was performed with a running #1 looped PDS suture, which was utilized to reapproximate the anterior rectus fascia. The subcutaneous tissue was thoroughly irrigated and then cauterized for hemostatic purposes as necessary. The skin edges were then reapproximated with skin joleen, followed by Telfa, 4x4s, and tape. 4x4s and tape were also placed around the drain site. Due to an incorrect instrument count, a flat plate abdominal film was then obtained. This revealed no instruments nor undesired foreign bodies left within the operative site. Before awakening the patient, the left-sided nephrostomy tube was removed after releasing the pigtail. The nephrostomy tube was noted to be removed completely and intact. Bacitracin ointment followed by 4x4s and tape were then placed at the nephrostomy exit site. The patient was then placed back in the supine position. She was extubated, transferred to her bed, then taken to recovery room. She tolerated the procedure well overall. COMPLICATIONS: None. DISPOSITION: She was transferred to the recovery room in stable condition and will be admitted for postoperative care. /[id number]/MODL MTDD
[2017-12-28] MEDS: LEVOTHYROXINE 75 MCG TAB PO SCH (05:37)
[2017-12-28] MEDS: cefOXitin SODIUM 2 GM in STERILE WATER INJ 21 ML IV SCH ×2 (05:37→13:19)
[2017-12-28] MEDS: D5W 1/2 NS 1,000 ML IV SCH (05:55)
[2017-12-28] MEDS: RN MESSAGE:DATE/TIME OF ADMIN MISC SCH ×3 (07:59→18:07)
[2017-12-28] MEDS: CETIRIZINE 10 MG TAB PO SCH (08:57)
[2017-12-28] MEDS: GABAPENTIN 100 MG CAP PO SCH ×3 (08:57→18:05)
[2017-12-28] MEDS: DOCUSATE SODIUM 100 MG CAP PO SCH ×2 (08:57→20:21)
--- NOTE | 2017-12-28 09:11 | SOAPPROG ---
SOAP Progress Note Assessment/Plan: Assessment: POD 1 s/p left ureteral reimplantation w/ psoas hitch - stable. Plan: 1. Because of nausea, continue CLD for now. 2. PT/OT eval's. 3. OOB. 4. Continue postop care o/w. 5. Recheck labs in AM. 6. Add Toradol. Subjective: c/o some nausea w/o emesis. Pain appears to be manageable. Objective: Vital Signs Temp Pulse Resp BP Pulse Ox 36.7 C 95 18 96/54 L 92 12/28/17 07:45 12/28/17 07:45 12/28/17 07:45 12/28/17 07:45 12/28/17 07:45 Laboratory Results 12/28/17 04:37 12/28/17 04:37 12/27/17 12/28/17 12/29/17 05:59 05:59 05:59 Intake Total 3534 Output Total 620 Balance 2914 Physical Exam - Physical Exam General Appearance: alert, no apparent distress, obese Abdomen: soft (mildly tender, sandra. in LLQ), other (bandages intact) Pelvic Exam: other (Gaston in place draining dark bloody urine) Skin: warm/dry Extremities: non-tender, normal inspection Neuro/Psych: alert ICD10 Worksheet Patient Problems: Problems Problem Status Onset Intra-abdominal fluid collection Acute Rectal prolapse Acute
[2017-12-28] MEDS ORDERED: KETOROLAC 30 MG/1 ML SDV IVP ONE (09:13)
--- NOTE | 2017-12-28 09:17 | PDMN ---
Medical Necessity Medical necessity: Patient meets inpatient criteria per physician order and [facility] Urologic Surgery or Procedure GRG (CPT 22622 / Medicare inpatient-only surgery, ureteroneocystostomy, with vesico-psoas hitch and L nephrostomy tube placement, L ureterolysis.)
[2017-12-28] MEDS: LOSARTAN POTASSIUM 25 MG TAB PO SCH (09:23)
[2017-12-28] MEDS: ONDANSETRON 4 MG/2 ML VIAL IVP PRN ×3 (09:51→22:30)
--- NOTE | 2017-12-28 10:48 | SOAPPROG ---
SOAP Progress Note Assessment/Plan: Assessment: 67 y/o F s/p left ureteral reimplantation and ventral hernia repair POD#1 S: Sitting up in bed. Pain well controlled with toradol and wheat cleaner. Not passing gas or stool yet. C/o nausea. Zofran has helped. O: ALert Afebrile RRR No increase WOB Abdomen: dressing with some serosang drainage. soft, mildly tender to palpation Plan: 12/28/17 10:42 Objective: Vital Signs Temp Pulse Resp BP Pulse Ox 36.7 C 95 18 96/54 L 92 12/28/17 07:45 12/28/17 07:45 12/28/17 07:45 12/28/17 09:23 12/28/17 07:45 Laboratory Results 12/28/17 04:37 12/28/17 04:37 12/27/17 12/28/17 12/29/17 05:59 05:59 05:59 Intake Total 3534 Output Total 620 Balance 2914 ICD10 Worksheet Patient Problems: Problems Problem Status Onset Intra-abdominal fluid collection Acute Rectal prolapse Acute
[2017-12-28] MEDS: buPROPion SR 100 MG TAB PO SCH (12:27)
--- NOTE | 2017-12-28 13:09 | ASMTCMCOM ---
CM Note CM Note Notes: Pt is current with [facility] for RN/PT/OT. CM will follow for any add'l needs. Date Signed: 12/28/2017 01:08 PM Electronically Signed By:Mili Bauer LCSW
[2017-12-28] MEDS: KETOROLAC 15 MG/1 ML SDV IVP SCH ×3 (16:53→23:44)
[2017-12-28] MEDS ORDERED: NS 1,000 ML IV ONE (17:30)
[2017-12-28] MEDS: BACLOFEN 10 MG TAB PO SCH (20:21)
[2017-12-28] MEDS: PRAVASTATIN SODIUM 10 MG TAB PO SCH (20:21)
--- NOTE | 2017-12-28 22:47 | GCON ---
[f rep st] CONSULTATION DATE OF CONSULTATION: 12/28/2017 HISTORY OF PRESENT ILLNESS: The patient is a pleasant, 67-year-old female, who is postoperative day 1 from a repair of a ureteral transection that occurred during a laparoscopic rectopexy. This is an open left ureteroneocystostomy with psoas hitch. She also had left ureterolysis and left nephrostomy tube placement. I am asked to see the patient in consultation by Dr. Radha Griffin after the patient became acutely co nfused. When I see the patient, she is alert and conversant but clearly confused, not following the conversation, tangential, and exhibiting a bit of paranoia. Her family acknowledges that this is unl mariam her. Notably, she has a Dilaudid [employer] E[employer]ECTS LAYOUT PERSON, which is a new finding for her. She had done well this mo rning. Her noted she hit the button many times. It is a standard dose [employer] LAYOUT PERSON, which is 0.2 mg, I believe every 15 minutes. The patient denies pain. She has a swollen right upper extremity that required the removal of an IV today. There has been no nausea. There has been no vomiting. She does not drink alcohol. She does not corby e prescription benzodiazepines. Additionally, the patient has recently started on baclofen the last couple of days for some muscle spasms in her legs and she did receive a dose tonight. The patient had some soft blood pressure and received some IV fluids this afternoon. REVIEW OF SYSTEMS: A complete 10-point review of systems conducted and negative except as noted in t he HPI. PAST MEDICAL HISTORY: 1. Hypothyroidism. 2. Anxiety. 3. COPD, on nocturnal oxygen. 4. Coronary artery disease. 5. History of CVA with some speech deficits and right-sided weakness. 6. Depression. 7. Essential hypertension. 8. GERD. 9. Hyperlipidemia. 10. Obesity. ALLERGIES: Acetaminophen and oxycodone, to which she gets a rash. CURRENT MEDICATIONS: 1. Bupropion. 2. Carboxymethylcellulose. 3. Cetirizine. 4. Docusate. 5. Gabapentin. 6. Toradol. 7. Dilaudid [employer] E[employer]ECTS LAYOUT PERSON. 8. Levothyroxine. 9. Losartan. 10. Morphine. 11. Ondansetron. 12. Pravastatin. SOCIAL HISTORY: Quit tobacco remotely. No alcohol. Family at the bedside. FAMILY HISTORY: Daughter is healthy at 40 years old. PHYSICAL EXAMINATION: VITAL SIGNS: Temperature 36.8, blood pressure 98/67, now 107/60. Pulse 93-10 4, breathing 18 times a minute, 96% on 1 L. GENERAL: No acute distress. Alert, conversant, but def initely disoriented. NECK: Supple without lymphadenopathy. LUNGS: Some crackles bilaterally with a poor quality exam. HEART: S1, S2. Not tachycardic. ABDOMEN: Soft. Bowel sounds are hypoactive . There is a midline incision that is well bandaged. I did not look at it. EXTREMITIES: Right upp er extremity is edematous with pitting edema. Left upper extremity is normal. Her lower extremities are without edema. Calves are nontender. SKIN: Without rash. NEUROLOGIC: Nonfocal. LABORATORY DATA: White count is 16.7, which is high. Hematocrit is 38, which is baseline for her. Platelets are 271. Sodium 138, potassium 5.0, chloride 105, bicarb 24, BUN 13, creatinine 0.9, gluco se 127. There is no imaging. I have discussed the case with Dr. Radha Griffin. ASSESSMENT AND PLAN: This is a 67-year-old female, with postoperative delirium. 1. Delirium. This is almost certainly secondary to pain medicines as well as baclofen. This is not consistent with cerebrovascular accident. I will stop her pain medicine, stop her baclofen, discont inue her Benadryl, put her on 1 mg morphine, and encouraged the nurses to use Toradol. I suspect she will begin to clear by the morning. 2. Edematous left upper extremity. This warrants an evaluation with an ultrasound. If it is positi ve, I discussed with Dr. Griffin it is okay to start unfractionated heparin drip without a bolus at 7 a.m. on 12/29/2017. 3. Crackles. I suspect this is atelectasis given her large abdominal surgery and habitus, but a cem st x-ray has been ordered to rule out infiltrate. I have a low suspicion. 4. Prophylaxis. Would recommend pharmacologic prophylaxis when safe from a bleeding standpoint. 5. Hypoxemia. This is postoperative and recommend incentive spirometry, which I have taken the libe rty of ordering. Thank you for this consultation. Hospital Medicine will follow with you. /[id number]/MODL
[2017-12-29] MEDS: LEVOTHYROXINE 75 MCG TAB PO SCH (05:27)
[2017-12-29] MEDS: KETOROLAC 15 MG/1 ML SDV IVP SCH ×3 (05:27→18:22)
[2017-12-29] MEDS: ONDANSETRON 4 MG/2 ML VIAL IVP PRN ×4 (05:31→22:16)
--- NOTE | 2017-12-29 10:03 | HOSPPROG ---
Hospitalist Progress Note Assessment/Plan: # acute on chronic encephalopathy d/t delirium - multifactorial; at baseline per - decrease sedating meds as possible, continue non-pharmacologic measures # CVA with R sided deficits and expressive aphasia - cont statin; not on asa - d/t surgery? # POD #1 ventral hernia repair and ureteral reimplantation (complete transection occurred ) - post-op care per gen surg and urology # LUE edema - US negative # hypoxia - post op; cont IS # hypothyroid - synthroid # COPD/chronic resp failure on nocturnal O2 Subjective: still nauseaus but reports being hungry; per at her baseline Objective: Vital Signs Temp Pulse Resp BP Pulse Ox 37.0 C 89 17 121/73 H 92 12/29/17 08:00 12/29/17 08:00 12/29/17 08:00 12/29/17 08:00 12/29/17 08:00 Laboratory Results 12/29/17 04:39 12/29/17 04:39 12/28/17 12/29/17 12/30/17 05:59 05:59 05:59 Intake Total 3534 2388 100 Output Total 620 1240 450 Balance 2914 1148 -350 chart reviewed US reviewed - Physical Exam Constitutional: chronically ill appearing Cardiovascular: regular rate and rhythym, no murmur, rub, or gallop Respiratory: no respiratory distress, no rales or rhonchi, clear to auscultation Gastrointestinal: soft, non-tender abdomen, no palpable masses, No guarding, No rebound, No distension Neurologic: other (speach is difficult) ICD10 Worksheet Patient Problems: Problems Problem Status Onset Intra-abdominal fluid collection Acute Rectal prolapse Acute
[2017-12-29] MEDS: GABAPENTIN 100 MG CAP PO SCH ×3 (10:20→18:10)
[2017-12-29] MEDS: DOCUSATE SODIUM 100 MG CAP PO SCH ×2 (10:21→20:09)
[2017-12-29] MEDS: CETIRIZINE 10 MG TAB PO SCH (10:21)
[2017-12-29] MEDS: LOSARTAN POTASSIUM 25 MG TAB PO SCH (10:21)
--- NOTE | 2017-12-29 12:55 | SOAPPROG ---
SOAP Progress Note Assessment/Plan: Assessment/Plan: -67 yo F s/p ureter repair, ventral hernia repair - VSS, HDS - abdomen appropriately tender, MARY serosang - has bowel sounds, passing flatus per report. Would be ok with advancing diet to clears if ok with urology. 12/29/17 12:54 Subjective: pain controlled. Objective: Vital Signs Temp Pulse Resp BP Pulse Ox 37.0 C 89 17 121/73 H 92 12/29/17 08:00 12/29/17 08:00 12/29/17 08:00 12/29/17 08:00 12/29/17 08:00 Laboratory Results 12/29/17 04:39 12/29/17 04:39 12/28/17 12/29/17 12/30/17 05:59 05:59 05:59 Intake Total 3534 2388 100 Output Total 620 1240 450 Balance 2914 1148 -350 ICD10 Worksheet Patient Problems: Problems Problem Status Onset Intra-abdominal fluid collection Acute Rectal prolapse Acute
--- NOTE | 2017-12-29 17:39 | SOAPPROG ---
SOAP Progress Note Assessment/Plan: Assessment: 1. POD 1 s/p left ureteral reimplantation w/ psoas hitch - stable. 2. Probable colonic impaction w/ secondary N/V - she was visually impacted at time of surgery. Plain films do not reveal SBO. Plan: 1. Continue NPO with sips & chips until bowl function improves. 2. Continue PT/OT. Stressed importance of walking in halls. 3. Recheck labs in AM. 4. MARY out, dressings off. 5. Start Heparin SQ Q. 12. 6. PICC line if she loses peripheral access. 7. Begin bowel protocol. Subjective: N/V today. No flatus. Has not ambulated in halls. Pain is manageable. Objective: Vital Signs Temp Pulse Resp BP Pulse Ox 37.2 C 90 18 114/66 94 12/29/17 15:35 12/29/17 15:35 12/29/17 15:35 12/29/17 15:35 12/29/17 15:35 Laboratory Results 12/29/17 04:39 12/29/17 04:39 12/28/17 12/29/17 12/30/17 05:59 05:59 05:59 Intake Total 3534 2388 100 Output Total 620 1240 670 Balance 2914 1148 -570 Physical Exam - Physical Exam General Appearance: alert, no apparent distress, obese Abdomen: soft (mild lower midline tenderness; bandages in place; min. MARY output) Pelvic Exam: other (urine clear via Gaston) Skin: normal color, warm/dry Extremities: non-tender, normal inspection Neuro/Psych: alert ICD10 Worksheet Patient Problems: Problems Problem Status Onset Intra-abdominal fluid collection Acute Rectal prolapse Acute
[2017-12-29] MEDS ORDERED: LACTULOSE 20 GM/30 ML UDCUP PO PRN (17:41)
[2017-12-29] MEDS ORDERED: POLYETHYLENE GLYCOL 3350 17 GM PKT PO PRN (17:41)
[2017-12-29] MEDS ORDERED: BISACODYL 10 MG SUPP PR PRN (17:41)
[2017-12-29] MEDS ORDERED: MAGNESIUM HYDROXIDE 30 ML UDCUP PO PRN (17:41)
[2017-12-29] MEDS: buPROPion SR 100 MG TAB PO SCH (18:10)
[2017-12-29] MEDS: SENNOSIDES/DOCUSATE SODIUM TAB PO SCH (20:08)
[2017-12-29] MEDS: HEPARIN 5,000 UNIT/0.5 ML SYR SC SCH (20:09)
[2017-12-29] MEDS: PRAVASTATIN SODIUM 10 MG TAB PO SCH (20:09)
[2017-12-29] MEDS: D5W NS 1,000 ML IV SCH (23:27)
[2017-12-30] MEDS: PROMETHAZINE HCL 25 MG/ML INJ IVP PRN ×3 (00:04→21:36)
[2017-12-30] MEDS: ONDANSETRON 4 MG/2 ML VIAL IVP PRN ×3 (02:50→16:10)
[2017-12-30] MEDS: LEVOTHYROXINE 75 MCG TAB PO SCH (04:17)
[2017-12-30] MEDS: D5W NS 1,000 ML IV SCH ×2 (06:03→20:32)
[2017-12-30] MEDS ORDERED: ONDANSETRON DISINTEGRATING 4 MG TAB PO PRN (08:31)
[2017-12-30] MEDS: HEPARIN 5,000 UNIT/0.5 ML SYR SC SCH ×2 (09:55→21:34)
[2017-12-30] MEDS: GABAPENTIN 100 MG CAP PO SCH ×3 (11:21→17:35)
[2017-12-30] MEDS: DOCUSATE SODIUM 100 MG CAP PO SCH ×2 (11:22→21:02)
[2017-12-30] MEDS: CETIRIZINE 10 MG TAB PO SCH (11:22)
[2017-12-30] MEDS: SENNOSIDES/DOCUSATE SODIUM TAB PO SCH ×2 (11:23→21:02)
[2017-12-30] MEDS: LOSARTAN POTASSIUM 25 MG TAB PO SCH (12:13)
[2017-12-30] MEDS: buPROPion SR 100 MG TAB PO SCH (12:13)
[2017-12-30] MEDS ORDERED: LIDOCAINE 1% 300 MG/30 ML SDV ONE (12:16)
--- NOTE | 2017-12-30 12:24 | HOSPPROG ---
Hospitalist Progress Note Assessment/Plan: # acute on chronic encephalopathy d/t delirium - multifactorial; at baseline per - decrease sedating meds as possible, continue non-pharmacologic measures # POD #2 ventral hernia repair and ureteral reimplantation (complete transection occurred ) - post-op care per gen surg and urology # post-op ileus, constipation - discussed suppository with Dr Villalobos - ok to give even with recent rectopexy as there was no rectum resection # CVA with R sided deficits and expressive aphasia - cont statin; not on asa - d/t surgery? # LUE edema - US negative # hypoxia - post op; cont IS # hypothyroid - synthroid # COPD/chronic resp failure on nocturnal O2 Subjective: some vomiting yesterday; ongoing abd pain; seen with her Objective: Vital Signs Temp Pulse Resp BP Pulse Ox 36.8 C 92 19 108/90 H 94 12/30/17 07:39 12/30/17 07:39 12/30/17 07:39 12/30/17 12:06 12/30/17 07:39 Laboratory Results 12/30/17 05:13 12/30/17 05:13 12/29/17 12/30/17 12/31/17 05:59 05:59 05:59 Intake Total 2388 2930 Output Total 1240 3110 100 Balance 1148 -180 -[address] Wilfredo DIXON personally reviewed - Physical Exam Constitutional: no apparent distress, appears nourished Cardiovascular: regular rate and rhythym, no murmur, rub, or gallop Respiratory: no respiratory distress, no rales or rhonchi, clear to auscultation Gastrointestinal: other (diminished BS; midline incision clean; sopft, mild TTP diffusely) ICD10 Worksheet Patient Problems: Problems Problem Status Onset Intra-abdominal fluid collection Acute Rectal prolapse Acute
--- NOTE | 2017-12-30 16:01 | ASMTCMCOM ---
CM Note CM Note Notes: PT recommending SNF Rehab. Patient reports, "I can't talk about this." Contacted her , who stated that patient had been at the [facility] for rehab and that it wasn't a pleasant experience. He wants her to return home w/[facility] on discharge. Date Signed: 12/30/2017 04:00 PM Electronically Signed By:Juliann Sneed LCSW
--- NOTE | 2017-12-30 16:34 | GOP ---
[f rep st] OPERATIVE REPORT DATE OF OPERATION: 12/27/2017 SURGEON: Boyd Galvan MD REFRIGERATING TECHNICIAN: Radha Griffin MD. PREOPERATIVE DIAGNOSIS: Incisional ventral hernia. POSTOPERATIVE DIAGNOSIS: Incisional ventral hernia. PROCEDURE PERFORMED: Incisional hernia repair FINDINGS: 6 cm defect DESCRIPTION OF PROCEDURE: Patient was in the operating room under general endotracheal anesthesia. Midline incision had been made by Dr. Griffin for another procedure. The incision was extended cephalad and the ventral hernia was dissected free, and the contents were reduced. The sac was excised. The fascia was then closed with interrupted #1 PDS sutures as well as a running #1 PDS suture. Hemostasis was assured. No mesh or permanent sutures were used because of the contamination from the other surgery she was undergoing. She tolerated the procedure well. The wound was infiltrated with 0.5% Marcaine. There were no complications. /[id number]/MODL MTDD
--- NOTE | 2017-12-30 16:51 | SOAPPROG ---
SOAP Progress Note Assessment/Plan: Assessment/Plan: -67 yo F s/p ureter repair, ventral hernia repair - VSS, HDS - abdominal distention persists, she has no bowel sounds today and is nauseated. - NPO, sips for comfort. Discussed limiting with nurse - suppository given this AM, patient was on the way to toilet for BM as I left - await better bowel function before advancing, imaging from yesterday appears to be ileus. 12/29/17 12:54 12/30/17 16:50 Subjective: upset that she is nauseated Objective: Vital Signs Temp Pulse Resp BP Pulse Ox 37.1 C 90 20 112/69 91 L 12/30/17 15:54 12/30/17 15:54 12/30/17 15:54 12/30/17 15:54 12/30/17 15:54 Laboratory Results 12/30/17 05:13 12/30/17 05:13 12/29/17 12/30/17 12/31/17 05:59 05:59 05:59 Intake Total 2388 2930 Output Total 1240 3110 400 Balance 1148 -180 -400 ICD10 Worksheet Patient Problems: Problems Problem Status Onset Intra-abdominal fluid collection Acute Rectal prolapse Acute
--- NOTE | 2017-12-30 16:53 | SOAPPROG ---
SOAP Progress Note Assessment/Plan: Assessment: 1. POD 3 s/p left ureteral reimplantation w/ psoas hitch - stable. 2. Probable colonic impaction w/ secondary N/V - she was visually impacted at time of surgery. Yesterday's plain films do not reveal SBO. Still having nausea w/ ice chips. Plan: 1. Continue NPO with sips & chips until bowl function improves. 2. Continue PT/OT. Stressed importance of walking in halls. 3. Continue Heparin SQ Q. 12. 4. PICC line placed earlier today due to loss of peripheral access. 5. Continue bowel protocol. Subjective: c/o nausea and vomiting earlier today w/ ice chips. Wants to eat. Ambulated once in halls. Objective: Vital Signs Temp Pulse Resp BP Pulse Ox 37.1 C 90 20 112/69 91 L 12/30/17 15:54 12/30/17 15:54 12/30/17 15:54 12/30/17 15:54 12/30/17 15:54 Laboratory Results 12/30/17 05:13 12/30/17 05:13 12/29/17 12/30/17 12/31/17 05:59 05:59 05:59 Intake Total 2388 2930 Output Total 1240 3110 400 Balance 1148 -180 -400 Physical Exam - Physical Exam General Appearance: alert, no apparent distress, obese Abdomen: soft (mild tunde-incisional and LLQ tenderness), other (incision well- approximated without evidence of cellulitis (min. serous drainage from lower aspect)) Pelvic Exam: other (urine blood-tinged via Gaston (probable stent + Heparin effect)) Skin: normal color, warm/dry Extremities: non-tender Neuro/Psych: alert ICD10 Worksheet Patient Problems: Problems Problem Status Onset Intra-abdominal fluid collection Acute Rectal prolapse Acute
[2017-12-30] MEDS: PRAVASTATIN SODIUM 10 MG TAB PO SCH (21:02)
[2017-12-31] MEDS: HALOPERIDOL LACT 5 MG/ML INJ IVP PRN ×2 (01:04→22:50)
[2017-12-31] MEDS: LEVOTHYROXINE 75 MCG TAB PO SCH (06:14)
[2017-12-31] MEDS: D5W NS 1,000 ML IV SCH ×3 (06:23→20:28)
[2017-12-31 06:44] LABS: PLATELET COUNT 234 10^3/uL (150-400)
[2017-12-31] MEDS: GABAPENTIN 100 MG CAP PO SCH ×3 (08:46→17:09)
[2017-12-31] MEDS: CETIRIZINE 10 MG TAB PO SCH ×2 (08:47→17:09)
[2017-12-31] MEDS: LOSARTAN POTASSIUM 25 MG TAB PO SCH (08:47)
[2017-12-31] MEDS: SENNOSIDES/DOCUSATE SODIUM TAB PO SCH ×3 (08:48→20:19)
[2017-12-31] MEDS: DOCUSATE SODIUM 100 MG CAP PO SCH ×3 (08:48→20:19)
[2017-12-31] MEDS: HEPARIN 5,000 UNIT/0.5 ML SYR SC SCH ×2 (08:50→20:19)
--- NOTE | 2017-12-31 09:03 | SOAPPROG ---
SOAP Progress Note Assessment/Plan: Assessment: 67 y/o F s/p left ureteral reimplantation and ventral hernia repair 5/ S: Sitting up in chair. Pain well controlled. Not passing gas or stool yet. Tolerating ice chips, would like to start drinking more fluids. O: ALert Afebrile RRR No increase WOB Abdomen: soft, mildly tender to palpation, incision cdi. Rare bowel sounds. Previous MARY site dehisced. : indwelling nelson catheter with sanguinous urine Plan: Advance diet to clear liquids. Continue nelson for full 7 days. Dressing to dehisced incision. Discussed with RN. Pt seen with Dr. Galvan. 12/31/17 08:58 Objective: Vital Signs Temp Pulse Resp BP Pulse Ox 37.1 C 77 14 110/92 H 91 L 12/31/17 07:30 12/31/17 07:30 12/31/17 07:30 12/31/17 07:30 12/31/17 07:30 Laboratory Results 12/31/17 06:30 12/31/17 06:30 12/30/17 12/31/17 01/01/18 05:59 05:59 05:59 Intake Total 2930 2188 Output Total 3110 1801 Balance -180 387 ICD10 Worksheet Patient Problems: Problems Problem Status Onset Intra-abdominal fluid collection Acute Rectal prolapse Acute
--- NOTE | 2017-12-31 10:57 | ASMTCMCOM ---
CM Note CM Note Notes: Chart reviewed. Discussed with MD regarding family wishes for disposition to home. Daughter Iesha called stating family does not want Dr. Galvan to see the patient unless they are in the room. Spoke to PA who will give message to Dr. Galvan. Charge nurse Neymar also aware of family request.CM to follow. Plan: Home with [facility] Date Signed: 12/31/2017 10:57 AM Electronically Signed By:Dari Blank RN
[2017-12-31] MEDS: buPROPion SR 100 MG TAB PO SCH (12:27)
--- NOTE | 2017-12-31 14:04 | HOSPPROG ---
Hospitalist Progress Note Assessment/Plan: # acute on chronic encephalopathy d/t delirium - multifactorial; at baseline per - decrease sedating meds as possible, continue non-pharmacologic measures # POD #3 ventral hernia repair and ureteral reimplantation (complete transection occurred ) - post-op care per gen surg and urology # post-op ileus, constipation - slow improvement # CVA with R sided deficits and expressive aphasia - cont statin; not on asa - d/t surgery? # LUE edema - US negative # hypoxia - post op; cont IS # hypothyroid - synthroid # COPD/chronic resp failure on nocturnal O2 # dvt ppx - started by Dr Griffin at low dose Subjective: diet advanced, but not hungry; ambulated with therapy today; no emesis today Objective: Vital Signs Temp Pulse Resp BP Pulse Ox 37.1 C 77 14 110/92 H 91 L 12/31/17 07:30 12/31/17 07:30 12/31/17 07:30 12/31/17 07:30 12/31/17 07:30 Laboratory Results 12/31/17 06:30 12/31/17 06:30 12/30/17 12/31/17 01/01/18 05:59 05:59 05:59 Intake Total 2930 2188 200 Output Total 3110 1801 Balance -180 387 200 chart reviewed - Physical Exam Constitutional: obese Cardiovascular: regular rate and rhythym, no murmur, rub, or gallop Respiratory: no respiratory distress, no rales or rhonchi, clear to auscultation Gastrointestinal: other (soft, mild TTP), No guarding, No rebound, No distension ICD10 Worksheet Patient Problems: Problems Problem Status Onset Rectal prolapse Acute Intra-abdominal fluid collection Acute
--- NOTE | 2017-12-31 18:26 | SOAPPROG ---
SOAP Progress Note Assessment/Plan: Assessment: 1. POD 4 s/p left ureteral reimplantation w/ psoas hitch - stable. No evidence of wound dehiscence (as noted by PUMPER GAGER APPRENTICE). 2. Probable colonic impaction w/ secondary N/V - she was visually impacted at time of surgery. This weekend's plain films do not reveal SBO. Slowly improving, but still no significant output. Discussed w/ Dr. Galvan. 3. Anemia - had a reasonable drop in H/H this AM, but I do not appreciate any clinical evidence for acute blood loss, so this might be factitious. Plan: 1. Continue CLD. 2. Continue PT/OT. Stressed importance of walking in halls. 3. Continue Heparin SQ Q. 12. 4. Continue bowel protocol. Will give oral Lactulose & Fleet enema now. 5. Recheck CBC in AM. Subjective: Hungry. Nausea has decreased. No significant bowel output, however. She is ambulating some. Objective: Vital Signs Temp Pulse Resp BP Pulse Ox 36.8 C 70 14 115/68 92 12/31/17 15:38 12/31/17 15:38 12/31/17 15:38 12/31/17 15:38 12/31/17 15:38 Laboratory Results 12/31/17 06:30 12/31/17 06:30 12/30/17 12/31/17 01/01/18 05:59 05:59 05:59 Intake Total 2930 2188 1363 Output Total 3110 1801 250 Balance -675 500 1676 Physical Exam - Physical Exam General Appearance: alert, no apparent distress, obese Abdomen: soft (mild tunde-incisional tenderness; incisions c/d/i (possibly slight serous drainage continues from lower aspect of midline incision)) Pelvic Exam: other (urine dark yellow via Gaston) Skin: warm/dry Extremities: non-tender Neuro/Psych: alert ICD10 Worksheet Patient Problems: Problems Problem Status Onset Intra-abdominal fluid collection Acute Rectal prolapse Acute
[2017-12-31] MEDS: ONDANSETRON 4 MG/2 ML VIAL IVP PRN ×2 (20:19)
[2017-12-31] MEDS: PRAVASTATIN SODIUM 10 MG TAB PO SCH (20:20)
[2018-01-01] MEDS: LEVOTHYROXINE 75 MCG TAB PO SCH (05:40)
[2018-01-01] MEDS: D5W NS 1,000 ML IV SCH (06:24)
--- NOTE | 2018-01-01 08:21 | SOAPPROG ---
SOAP Progress Note Assessment/Plan: Assessment/Plan: 67 y/o F hx rectopexy for 360 degree prolapse, now s/p left ureteral reimplantation and ventral hernia repair 12/27. Ileus/constipation improved. Many stools with cathartics. Good bowel sounds this am. Will advance diet. Pain controlled. Nelson catheter per urology. Wound intact, min serous drainage inferiorly. Dispo: pending. S: just waking up this am. no complaints. had BM she says. no N/V. O: just waking up but answering questions appropriately ctab anteriorly rrr abd soft, inc cdi, min serous drainage inferiorly, no erythema. +BS. nelson in place. 01/01/18 08:18 Objective: Vital Signs Temp Pulse Resp BP Pulse Ox 36.8 C 71 15 108/78 91 L 01/01/18 08:00 01/01/18 08:00 01/01/18 08:00 01/01/18 08:00 01/01/18 08:00 Laboratory Results 01/01/18 06:15 12/31/17 06:30 12/31/17 01/01/18 01/02/18 05:59 05:59 05:59 Intake Total 2188 1563 1425 Output Total 1801 950 Balance 593 023 6895 ICD10 Worksheet Patient Problems: Problems Problem Status Onset Intra-abdominal fluid collection Acute Rectal prolapse Acute
[2018-01-01] MEDS ORDERED: HYDROCODONE/APAP 5/325 TAB PO PRN (09:19)
[2018-01-01] MEDS: CETIRIZINE 10 MG TAB PO SCH (09:50)
[2018-01-01] MEDS: LOSARTAN POTASSIUM 25 MG TAB PO SCH (09:50)
[2018-01-01] MEDS: GABAPENTIN 100 MG CAP PO SCH ×3 (09:50→18:31)
[2018-01-01] MEDS: HEPARIN 5,000 UNIT/0.5 ML SYR SC SCH ×2 (09:54→21:08)
[2018-01-01] MEDS: DOCUSATE SODIUM 100 MG CAP PO SCH ×2 (10:08→19:58)
[2018-01-01] MEDS: SENNOSIDES/DOCUSATE SODIUM TAB PO SCH ×2 (10:09→19:58)
[2018-01-01] MEDS: buPROPion SR 100 MG TAB PO SCH (13:05)
--- NOTE | 2018-01-01 15:06 | HOSPPROG ---
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 # LUE edema - US negative # hypoxia - post op; cont IS # hypothyroid - synthroid # COPD/chronic resp failure on nocturnal O2 # dvt ppx - started by Dr Griffin at low dose # dispo - likely tomorrow; will f/u Dr Griffin Sunday for cystogram and possible dc of nelson; patient's can manage nelson at home until then Subjective: discussed with patient, and Dr Griffin Objective: Vital Signs Temp Pulse Resp BP Pulse Ox 36.8 C 71 15 108/78 91 L 01/01/18 08:00 01/01/18 08:00 01/01/18 08:00 01/01/18 08:00 01/01/18 08:00 Laboratory Results 01/01/18 06:15 12/31/17 06:30 12/31/17 01/01/18 01/02/18 05:59 05:59 05:59 Intake Total 2188 1563 1425 Output Total 1801 950 Balance 465 262 5177 - Time Spent With Patient Time Spent with Patient: greater than 35 minutes Time Spent with Patient: Greater than 35 minutes spent on this patients care, greater than 50% of time spent counseling, educating, and coordinating care regarding the above mentioned plan. - Physical Exam Constitutional: chronically ill appearing ICD10 Worksheet Patient Problems: Problems Problem Status Onset Rectal prolapse Acute Intra-abdominal fluid collection Acute
[2018-01-01] MEDS: PRAVASTATIN SODIUM 10 MG TAB PO SCH (21:10)
--- NOTE | 2018-01-01 21:29 | SOAPPROG ---
SOAP Progress Note Assessment/Plan: Assessment: 1. POD 5 s/p left ureteral reimplantation w/ psoas hitch - stable. 2. Probable colonic impaction w/ secondary N/V - resolved. 3. Anemia - stable Plan: 1. Continue regular diet -- started earlier today. 2. Continue PT/OT. 3. Continue Heparin SQ Q. 12. 4. Home tomorrow. Family requests home health care. 5. My office will arrange for outpatient cystogram and FU in my office Sunday for Gaston and staple removal. Subjective: Feeling better. Tolerating regular diet but appetite is decreased. Had multiple BM's since yesterday. Objective: Vital Signs Temp Pulse Resp BP Pulse Ox 36.8 C 83 20 150/84 H 92 01/01/18 19:26 01/01/18 19:26 01/01/18 19:26 01/01/18 19:26 01/01/18 19:26 Laboratory Results 01/01/18 06:15 12/31/17 06:30 12/31/17 01/01/18 01/02/18 05:59 05:59 05:59 Intake Total 2188 1563 1925 Output Total 1801 950 325 Balance 644 166 2837 Physical Exam - Physical Exam General Appearance: alert, no apparent distress, obese Abdomen: soft (mild tunde-incisional tenderness), other (incisions c/d/i) Pelvic Exam: other (urine slightly blood-tinged via Gaston) Neuro/Psych: alert ICD10 Worksheet Patient Problems: Problems Problem Status Onset Intra-abdominal fluid collection Acute Rectal prolapse Acute
[2018-01-02] MEDS: LEVOTHYROXINE 75 MCG TAB PO SCH (05:28)
[2018-01-02 07:41] VITALS: BP 142/88
--- NOTE | 2018-01-02 09:57 | SOAPPROG ---
SOAP Progress Note Assessment/Plan: Assessment: 67 y/o F s/p left ureteral reimplantation and ventral hernia repair 5/ S: Pain well controlled. Passing flatus and stool. Tolerating regular diet. Reports some nausea, but no emesis O: ALert Afebrile RRR No increase WOB Abdomen: soft, mildly tender to palpation, incision cdi. normoactive bowel sounds. Previous MARY site dehisced. : indwelling nelson catheter with gold urine Plan: Per urology, dispo home with home health care today. Follow up with Dr. Galvan in 2 weeks 01/02/18 09:55 Objective: Vital Signs Temp Pulse Resp BP Pulse Ox 36.6 C 78 17 142/88 H 90 L 01/02/18 07:41 01/02/18 07:41 01/02/18 07:41 01/02/18 07:41 01/02/18 07:41 Laboratory Results 01/01/18 06:15 12/31/17 06:30 01/01/18 01/02/18 01/03/18 05:59 05:59 05:59 Intake Total 1563 1925 Output Total 950 625 Balance 613 1300 ICD10 Worksheet Patient Problems: Problems Problem Status Onset Intra-abdominal fluid collection Acute Rectal prolapse Acute
[2018-01-02] MEDS: buPROPion SR 100 MG TAB PO SCH (10:52)
[2018-01-02] MEDS: LOSARTAN POTASSIUM 25 MG TAB PO SCH (10:52)
[2018-01-02] MEDS: GABAPENTIN 100 MG CAP PO SCH ×2 (10:52→14:02)
[2018-01-02] MEDS: CETIRIZINE 10 MG TAB PO SCH (10:53)
[2018-01-02] MEDS: HEPARIN 5,000 UNIT/0.5 ML SYR SC SCH (10:59)
[2018-01-02] MEDS: SENNOSIDES/DOCUSATE SODIUM TAB PO SCH (11:26)
[2018-01-02] MEDS: DOCUSATE SODIUM 100 MG CAP PO SCH (11:26)
[2018-01-02] MEDS: FUROSEMIDE 20 MG/2 ML VIAL IVP ONE ×2 (12:14→12:23)
--- NOTE | 2018-01-02 12:43 | HOSPPROG ---
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 Would restart once surgery ok with this. Can be restarted in an op setting # LUE edema - US negative #bilateral pedal edema: Lasix IV x 1 today. # hypoxia - post op; cont IS. lasix today should help as well # hypothyroid - synthroid # COPD/chronic resp failure on nocturnal O2 #Post op anemia. hgb stble around 8. recheck in op setting. # dvt ppx - started by Dr Griffin at low dose # dispo - ok for d/c today; will f/u Dr Griffin Sunday for cystogram and possible dc of nelson; patient's can manage nelson at home until then. f/ u with pcp in 1-3 weeks. Subjective: feels ok. Has pedal edema.no cp or sob. Objective: Vital Signs Temp Pulse Resp BP Pulse Ox 36.6 C 78 17 142/88 H 96 01/02/18 07:41 01/02/18 07:41 01/02/18 10:25 01/02/18 07:41 01/02/18 10:25 Laboratory Results 01/01/18 06:15 12/31/17 06:30 01/01/18 01/02/18 01/03/18 05:59 05:59 05:59 Intake Total 1563 1925 Output Total 950 625 Balance 613 1300 - Physical Exam Constitutional: no apparent distress, appears nourished Eyes: PERRL, EOMI Ears, Nose, Mouth, Throat: moist mucous membranes, hearing normal, ears appear normal Cardiovascular: edema (trace) Respiratory: no respiratory distress, no rales or rhonchi, clear to auscultation Gastrointestinal: normoactive bowel sounds, soft, non-tender abdomen Skin: warm Musculoskeletal: generalized weakness Psychiatric: interacting appropriately, not anxious Lymph, Heme, Immunologic: No petechiae ICD10 Worksheet Patient Problems: Problems Problem Status Onset Intra-abdominal fluid collection Acute Rectal prolapse Acute
--- NOTE | 2018-01-02 13:23 | PDIAF ---
- Diagnosis Code Status: Full Code - Medication Management Discharge Medications: Medications to Continue on Transfer Carboxymethylcellulose 1% [Refresh Celluvisc (*)] 1 drop EACHEYE DAILY PRN 07/16 [Last Taken Unknown] Cetirizine [ZyrTEC 10 mg (*)] 10 mg PO DAILY 07/16/11 [Last Taken 12/13/17] Gabapentin [Neurontin 100 MG (*)] 200 mg PO TID@,,07/16/11 [Last Taken ] Multivitamins [Multivitamin (*)] 1 each PO DAILY@07/16/11 [Last Taken ] Simvastatin [Zocor] 5 mg PO HS 07/16/11 [Last Taken 12/13/17] buPROPion SR [Wellbutrin 100mg SR (*)] 100 mg PO DAILY@07/16/11 [Last Taken 12/13/17] Cholecalciferol Vit D3 [Vitamin D3 (*)] 1,000 units PO DAILY@11/07/17 [Last Taken 12/13/17] Losartan Potassium [Cozaar 25 mg (*)] 25 mg PO DAILY 11/07/17 [Last Taken ] Docusate Sodium [Colace 100 MG (*)] 200 mg PO BID 11/09/17 [Last Taken 12/27/17] Acetaminophen [Tylenol ES 500 mg (*)] 500 mg PO Q6 PRN 12/14/17 [Last Taken 22:00] Baclofen [Baclofen 10 mg (*)] 5 mg PO HS 12/14/17 [Last Taken 12/12/17] Levothyroxine [Synthroid 75 mcg (*)] 75 mcg PO DAILY06 12/14/17 [Last Taken 11/11] Magnesium Oxide [Magnesium Oxide 400 mg (*)] 400 mg PO DAILY 12/14/17 [Last Taken 12/13/17] Polyethylene Glycol 3350 [Miralax 17 gm (*)] 17 gm PO DAILY@12 12/14/17 [Last Taken 12/13/17] [place]-3 Fatty Acids [Fish Oil 1000 mg (*)] 1,000 mg PO BID 12/24/17 [Last Taken Unknown] oxyCODONE/APAP 5/325 [Percocet 5/325 (*)] 1 - 2 tab PO Q4-6PRN PRN 12/24/17 [ Last Taken 3 Days Ago ~12/24/17] Discharge Medications: Refer to the Discharge Home Medication list for PRN reason. PICC Care - Routine: N/A - Orders Services needed: Home Care, Registered Nurse, Physical Therapy, Occupational Therapy Home Care Face to Face: I certify that this patient was under my care and that I had the required [id number] encounter meeting the encounter requirements on the discharge day. My findings support the fact that the patient is homebound as defined in Home Care Face to Face Continued: CMS Chapter 7 Medicare Benefits Manual 30.1.1 , The condition of the patient is such that there exists a normal inability to leave home and consequently, leaving home would require a considerable and taxing effort. Isolation Type: None Diet Recommendation: no restrictions on diet Diet Texture: Regular Texture Diet Gaston: Yes Sutures/[place] Site: lower midline Additional Instructions: Per Dr. Galvan: Avoid heavy lifting for 6 weeks. Ok to walk as tolerated. Follow up in our office in one week to have staple removed. Continue stool softeners and miralax as needed for constipation. Call with increased pain or fever. - Follow Up Care Current Providers and Referrals: Boyd Galvan MD [Medical Doctor] - follow up in 1 week Iwona Christopher MD [Primary Care Provider] - Radha Griffin MD [Medical Doctor] - 3-5 days
--- NOTE | 2018-01-02 13:25 | SOAPPROG ---
SOAP Progress Note Assessment/Plan: Assessment: 1. POD 6 s/p left ureteral reimplantation w/ psoas hitch - ready for discharge. 2. Probable colonic impaction w/ secondary N/V - resolved. 3. Anemia - stable Plan: 1. Continue regular diet. 2. Continue HHC, PT/OT as outpatient at home. 3. My office will arrange for outpatient cystogram and FU in my office Sunday for Gaston and staple removal. (d/c summ. # [id number]). 01/02/18 13:42 Subjective: No new complaints. She is happy to go home. Objective: Vital Signs Temp Pulse Resp BP Pulse Ox 36.6 C 78 17 142/88 H 96 01/02/18 07:41 01/02/18 07:41 01/02/18 10:25 01/02/18 07:41 01/02/18 10:25 Laboratory Results 01/01/18 06:15 12/31/17 06:30 01/01/18 01/02/18 01/03/18 05:59 05:59 05:59 Intake Total 1563 1925 Output Total 950 625 Balance 613 1300 Physical Exam - Physical Exam General Appearance: alert, obese Abdomen: soft, other (incision c/d/i (possibly slight serous drainage from lower aspect of midline incision -- no evidence of cellulitis)) Pelvic Exam: other (urine draining via Gaston without clots) Skin: warm/dry Neuro/Psych: alert ICD10 Worksheet Patient Problems: Problems Problem Status Onset Intra-abdominal fluid collection Acute Rectal prolapse Acute
--- NOTE | 2018-01-02 14:02 | GDS ---
[f rep st] DISCHARGE SUMMARY ADMIT DIAGNOSIS: Left ureteral transection. POSTOPERATIVE DIAGNOSIS: Left ureteral transection, resolved. PROCEDURES: Open left ureteral reimplantation with psoas hitch, ureterolysis, and ventral hernia rep air on 12/27/2017. HOSPITAL COURSE: Refer to the operative report for details regarding the procedure. Postoperatively, the patient had a somewhat prolonged ileus which eventually resolved with bowel prot ocol and time. She was slowly and gradually advanced to a regular diet without complication. Her vi mychal signs were stable, and she was afebrile during the postoperative period. Her chemistry panels we re stable postoperatively. She did have some drop in her hemoglobin and hematocrit but did not requi re transfusion. Her incision was clean and intact. There was some very slight serous drainage noted intermittently from the lower aspect of her incision, but no evidence of cellulitis. The patient di d lose peripheral IV access during the hospitalization and did require a PICC line. This was removed at the time of discharge. The patient was ambulating with assistance and also working with PT and O T during the hospitalization. She was deemed to be ready for discharge home with home health care nu ing, PT, and OT services on 01/02/2018. Activity restriction instructions have been given. Gaston catheter care instructions been provided. She will maintain her regular medications with the excepti on of baclofen and oxycodone. She will be given a small prescription for [place] p.r.n. pain on discha rge. She will maintain a regular diet. She will follow up with Dr. Galvan' office in about 1 week an d follow up in my office at either the end of this week or first part of next week with a cystogram p erformed prior to that time. Assuming cystogram appears okay, her Gaston catheter will be removed at that time. She will also need to return to my office in approximately 4 weeks from now for ureteral stent removal. She will also follow up with her primary care doctor in the next 2 weeks as matt castellanos. /[id number]/MODL
--- NOTE | 2018-01-02 15:20 | ASMTLACE ---
MARC Length of stay for Answers: 4-6 days current admission Acuity / Level of Answers: Yes Care: Did the patient have an inpatient admission? Comorbidities - select Answers: Cerebrovascular disease all that apply (CVA, TIA, aneurysms, vasc ular dementia) Chronic pulmonary disease Coronary Artery Disease Other Notes: HTN; # of Emergency department Answers: 1-2 visits in the last 6 months Social determinants Answers: Mental health diagnosis (anxiety, depression, pers onality disorders, etc.) Score: 17 Date Signed: 01/02/2018 03:19 PM Electronically Signed By:Krystle Srivastava RN
--- NOTE | 2018-01-02 16:52 | ASDISCHSUM ---
Discharge Information Plan Status:Home with Home Health Medically Cleared to Leave: Discharge Date:01/02/2018 03:48 PM CM D/C Disposition:Home Health Service ADT D/C Disposition:Home Health Service Projected Discharge Date:12/31/2017 11:00 AM Transportation at D/C:Family Discharge Delay Reason: Follow-Up Date:12/31/2017 11:00 AM Discharge Slot: Final Diagnosis: Placement Information Referral Type:*Home Health Care Services Referral ID:[id number] Provider Name:[facility] Address 1:[address] [facility] [address] Address 2: City:[place] Selection Factors: State:[place] Patient Contact Information Contact Name:ROSEMARY Relationship: Address:[address] City:[place] Alternate Phone: [facility]/Zip Code:[place] [address] Email: Financial Information Financial Class:Medicare Advantage Plans Primary Plan Desc:JOYCE GALLOWAY [facility] MEDICARE Primary Plan Number:[id number] Secondary Plan Desc: Secondary Plan Number: Assessment Information LACE LACE Length of stay for Answers: 4-6 days current admission Acuity / Level of Answers: Yes Care: Did the patient have an inpatient admission? Comorbidities - select Answers: Cerebrovascular disease all that apply (CVA, TIA, aneurysms, vasc ular dementia) Chronic pulmonary disease Coronary Artery Disease Other Notes: HTN; # of Emergency department Answers: 1-2 visits in the last 6 months Social determinants Answers: Mental health diagnosis (anxiety, depression, pers onality disorders, etc.) Score: 17 Date Signed: 01/02/2018 03:19 PM Electronically Signed By:Krystle Srivastava RN [facility] CM Progress Note CM Note CM Note Notes: Pt is current with [facility] for RN/PT/OT. CM will follow for any add'l needs. Date Signed: 12/28/2017 01:08 PM Electronically Signed By:Mili Bauer LCSW [facility] CM Progress Note CM Note CM Note Notes: PT recommending SNF Rehab. Patient reports, "I can't talk about this." Contacted her , who stated that patient had been at the [facility] for rehab and that it wasn't a pleasant experience. He wants her to return home w/[facility] on discharge. Date Signed: 12/30/2017 04:00 PM Electronically Signed By:Juliann Sneed LCSW [facility] CM Progress Note CM Note CM Note Notes: Chart reviewed. Discussed with MD regarding family wishes for disposition to home. Daughter Iesha called stating family does not want Dr. Galvan to see the patient unless they are in the room. Spoke to GENARO who will give message to Dr. Galvan. Charge nurse Neymar also aware of family request.CM to follow. Plan: Home with [facility] Date Signed: 12/31/2017 10:57 AM Electronically Signed By:Dari Blank RN Case Management Discharge Plan Note Case Management Discharge Discharge Order Complete? Answers: Yes Patient to Obtain Answers: via Family Medications Transportation Arranged Answers: Family/Friends Discharge Comments Notes: Pt will dc home today w/[facility]. Met w/pt and to discuss- had some HC caregiver requests which I informed Mya at [facility] about and also of dc. Discussed w/RN who will call report. Date Signed: 01/02/2018 03:18 PM Electronically Signed By:Krystle Srivastava RN Intervention Information Intervention Type:*IM-Signed Date of Service:01/02/2018 03:12 PM Patient Type:Inpatient Staff Member:LORRAINE Srivastava, Krystle Hours: Discipline: Severity: Comment:
--- NOTE | 2018-01-07 11:10 | PQFORM ---
PHYSICIAN QUERY FORM Needs Your Response This query form is being sent to you to assure this patient record is coded properly. Please respond to the question below: PEDIATRIC LPN QUESTION: Dear Dr. Griffin, In reviewing this patient medical record it was noted the patient had the diagnosis of "Encephalopathy." In Dr. Lam 12/28 consultation noted patient was seen because "patient became acutely confused," and was later diagnosed with "delirium secondary to pain medication and baclofen." Noted in the Hospitalist progress notes dated 12/29-01/02 patient had the diagnosis of "acute on chronic encephalopathy d/t delirium-multifactorial." After study, should the diagnosis of "acute on chronic encephalopathy" be included in the discharge summary? Yes __XX___ No Unable to determine Other more appropriate diagnosis (please specify) ___ Thank you RIMA Cazares [facility]/Coding Dept. [phone] INSTRUCTIONS FOR RESPONSE: Answer question by clicking on the "Edit Document" button. Move cursor to area below the stars. When complete, hit "Save." Click on the "Sign" button, then click "Sign" again. Type in your PIN and hit "Enter." MTDD
== END 2018-01-02 15:48 | disposition home health service (06) | DRG 660 ==
LOC: F1N 11:01
PROVIDERS: ADMIT Specialist; ATTEND Specialist
PROC: 0TB70ZX Excision of Left Ureter, Open Approach, Diagnostic (ICD-10-PCS; principal; 2017-12-27 12:45)
PROC: 0T170ZB Bypass Left Ureter to Bladder, Open Approach (ICD-10-PCS; principal; 2017-12-27 12:45)
PROC: 0T777DZ Dilation of Left Ureter with Intraluminal Device, Via Natural or Artificial Opening (ICD-10-PCS; principal; 2017-12-27 12:45)
PROC: 0WQF0ZZ Repair Abdominal Wall, Open Approach (ICD-10-PCS; principal; 2017-12-27 12:45)
PROC: 0TP5X0Z Removal of Drainage Device from Kidney, External Approach (ICD-10-PCS; principal; 2017-12-27 12:45)
PROC: 02HV33Z Insertion of Infusion Device into Superior Vena Cava, Percutaneous Approach (ICD-10-PCS; 2017-12-30)
DX: N99.81 Other intraoperative complications of genitourinary system (principal); K91.89 Other postprocedural complications and disorders of digestive system; N39.9 Disorder of urinary system, unspecified; R41.0 Disorientation, unspecified; T39.8X5A Adverse effect of other nonopioid analgesics and antipyretics, not elsewhere classified, initial encounter; T42.8X5A Adverse effect of antiparkinsonism drugs and other central muscle-tone depressants, initial encounter; M79.89 Other specified soft tissue disorders; K43.9 Ventral hernia without obstruction or gangrene; E03.9 Hypothyroidism, unspecified; I69.920 Aphasia following unspecified cerebrovascular disease; J44.9 Chronic obstructive pulmonary disease, unspecified; I10 Essential (primary) hypertension; I25.10 Atherosclerotic heart disease of native coronary artery without angina pectoris; G47.30 Sleep apnea, unspecified; Z87.891 Personal history of nicotine dependence
CPT/HCPCS: 97116-GP; 97162-GP; 97166-GO; 97530-GO; 97530-GP; 97535-GO; C1751; C1769; C2625; J0694; J1170; J1630; J1644; J1885; J1940; J2270; J2405; J2550

== ENCOUNTER → 2018-01-04 | Outpatient (CLI) | payer OTHER ==
[~2018-01-04] MED LIST: IOTHALAMATE MEG (CYSTO-CONRAY II) 250 ML VIAL BLADIN ONE
== END ==
LOC: FIMAGING 10:04
PROVIDERS: ATTEND Specialist
PROC: BT101ZZ Fluoroscopy of Bladder using Low Osmolar Contrast (ICD-10-PCS; principal; 2018-01-04)
DX: N28.9 Disorder of kidney and ureter, unspecified (principal)
CPT/HCPCS: 74430; Q9961

== ENCOUNTER → 2018-03-01 | Outpatient (CLI) | payer OTHER ==
[~2018-03-01] MED LIST changes: +IOPAMIDOL (ISOVUE-300) 100 ML BTL ONE; +IOPAMIDOL (ISOVUE-300) 150 ML BTL ONE; -IOTHALAMATE MEG (CYSTO-CONRAY II) 250 ML VIAL BLADIN ONE
== END ==
LOC: FIMAGING 09:54
PROVIDERS: ATTEND Specialist
DX: Z48.816 Encounter for surgical aftercare following surgery on the genitourinary system (principal)
CPT/HCPCS: 74178; Q9967

== ENCOUNTER → 2018-11-12 | Outpatient (CLI) | payer OTHER | LOC: FIMAGING 10:25 | PROVIDERS: ATTEND Family Medicine | DX: Z12.31 Encounter for screening mammogram for malignant neoplasm of breast (principal) ==